=== PATIENT | female | born 1975 | race Caucasian/White ===

== ENCOUNTER 2018-09-15 09:51 | Inpatient (IN) | payer SELFPAY ==
[2018-09-15] MEDS ORDERED: FENTANYL CITR 100 MCG/2 ML ONE ×2 (10:48→12:10)
[2018-09-15] MEDS ORDERED: PROMETHAZINE 25 MG/ML VIAL ONE (10:48)
[2018-09-15] MEDS ORDERED: METOPROLOL TARTRATE 5 MG/5 ML INJ IV ONE (10:48)
[2018-09-15] MEDS ORDERED: NA CHLORIDE 0.9% 1,000 ML ONE ×2 (10:49→13:04)
[2018-09-15 11:03] LABS: Absolute Lymphocytes (CBC) 4.8 K/uL (0.7-4.9); Absolute Monocytes 1.3 K/uL (0.1-1.3); Absolute Neutrophil 10.5 K/uL (1.8-8.0); Basophils % 0.7 % (0-1.3); Eosinophils % 0.6 % (0-4.4); Hematocrit 43.4 % (36.0-45.0); Lymphocytes % 28.6 % (15.3-44.8); MPV 8.7 fL (7.6-11.3); Monocytes % 7.9 % (3.3-12.3); RBC Red Blood Cell Count 5.15 M/uL (3.86-4.86)
[2018-09-15 11:08] LABS: Protime INR 1.13
[2018-09-15] MEDS ORDERED: RSI MEDICATION KIT IV ONE (11:18)
[2018-09-15] MEDS ORDERED: MIDAZOLAM HCL 2 MG/2 ML INJ ONE ×3 (11:19→13:03)
[2018-09-15 11:22] LABS: Barbiturates NEGATIVE (NEGATIVE); Benzodiazepines NEGATIVE (NEGATIVE); Cocaine NEGATIVE (NEGATIVE); METHAMPHETAM NEGATIVE (NEGATIVE); Methadone NEGATIVE (NEGATIVE); Opiates NEGATIVE (NEGATIVE); Phencyclidine NEGATIVE (NEGATIVE); THC Cannibis NEGATIVE (NEGATIVE)
[2018-09-15 11:34] LABS: Albumin 3.5 g/dL (3.4-5.0); Bilirubin Direct 0.1 mg/dL (0-0.2); Bilirubin Total 0.4 mg/dL (0.2-1.0); Potassium 3.4 mmol/L (3.5-5.1); Protein, Total 7.7 g/dL (6.4-8.2); Troponin (Emerg Dept Use Only) 0.21 ng/mL (0.0-0.045)
[2018-09-15] MEDS ORDERED: LIDOCAINE 1% 20 ML MDV ONE ×2 (11:36→11:46)
[2018-09-15] MEDS ORDERED: TENECTEPLASE 50 MG/10 ML VIAL IV ONE (11:37)
[2018-09-15] MEDS ORDERED: ASPIRIN 600 MG/SUPP PR ONE (11:38)
[2018-09-15] MEDS ORDERED: DEXTROSE IV ONE (11:38)
[2018-09-15] MEDS ORDERED: LIDOCAINE IV ONE (11:38)
[2018-09-15 11:46] LABS: Urine Bacteria <20 /HPF (<20); Urine RBC 20-50 /HPF (NONE SEEN)
[2018-09-15] MEDS ORDERED: HEPA 1000U/500MLS 2,000 UNIT/1,000 ML BAG IV ONE (11:46)
[2018-09-15 11:47] LABS: Urine Blood 1+ (NEG); Urine Glucose NEGATIVE (NEG); Urine Protein NEGATIVE (NEG); Urine Specific Gravity 1.005 (1.005-1.030)
[2018-09-15 11:47] LABS: Urine Culture Reflex Order REFLEXED
[2018-09-15] MEDS ORDERED: NA CHLORIDE 0.9% 50 ML ONE (11:47)
[2018-09-15] MEDS ORDERED: ATROPINE SULF 1 MG/10 ML SYR IV ONE (11:47)
--- NOTE | 2018-09-15 11:52 | EKG ---
Test Date: 2018-09-15 Test Time: 10:09:36 Associate Professor Of Economics: DEYANIRA MEASUREMENT RESULTS: Intervals: Rate: 114 NV: 120 QRSD: 98 QT: 360 QTc: 496 [place]: P: 63 NV: 120 QRS: 86 T: 52 INTERPRETIVE STATEMENTS: Sinus rhythm frequent PVC ST elevation, consider early repolarization, pericarditis, or injury Abnormal ECG Compared to ECG 01/06/2012 21:56:27 ST (T wave) deviation now present T-wave abnormality no longer present Possible ischemia no longer present Prolonged QT interval no longer present Electronically Signed On 09-15-18 11:51:59 HL7 INTERFACE DEVELOPER by Dallas Auguste
--- NOTE | 2018-09-15 12:01 | RAD REPORT ---
EXAM DESCRIPTION: RAD - Chest Single View - 09/15/2018 11:56 am CLINICAL HISTORY: CHEST PAIN Chest pain. COMPARISON: No comparisons FINDINGS: Portable technique limits examination quality. ET tube tip is above the mukesh. Enteric tube descends into the upper abdomen. Lungs are grossly jose r. Heart size is within normal limits.
[2018-09-15] MEDS ORDERED: MIDAZOLAM HCL 5 MG/5 ML INJ ONE (12:10)
[2018-09-15] MEDS ORDERED: KETAMINE HCL 500 MG/5 ML VIAL ONE (12:15)
[2018-09-15] MEDS ORDERED: Phenylephrine HCl 10 MG/ML 1 ML VIAL ONE (12:15)
[2018-09-15] MEDS ORDERED: FENTANYL CITR 250 MCG/5 ML ONE (12:16)
--- NOTE | 2018-09-15 12:33 | ER ---
Nurse's Notes [facility] Name: Veda Colon Age: 43 yrs Sex: Female : 1975 Arrival Date: 09/15/2018 Time: 09:54 Bed 19 Private MD: None, None Diagnosis: Ventricular fibrillation-refractory;Acute coronary syndrome resulting in LAD occlusion and myocardial infarction;Status post CPR Presentation: 09/15 10:12 Presenting complaint: Patient states: MARCUS BEEN ON BACTRIM AND AUGMENTIN FOR UTI. HAVE ls4 UPPER ABDOMINAL AND CHEST PAIN THAT GOT WORSE TODAY. I HAD MRI IN [place] THAT SHOWS DUCT BLOCKAGE. THE PAIN GOT SO BAD TODAY I COULDN'T IGNORE. Transition of care: patient was not received from another setting of care. Onset of symptoms was September 15, 2018 at 10:13. Risk Assessment: Do you want to hurt yourself or someone else? Patient reports no desire to harm self or others. Initial Sepsis Screen: Does the patient meet any 2 criteria? No. Patient's initial sepsis screen is negative. Does the patient have a suspected source of infection? Yes:. Care prior to arrival: None. 10:12 Method Of Arrival: Ambulatory ls4 10:12 Acuity: ADONIS 3 ls4 Triage Assessment: 10:20 General: Appears distressed, uncomfortable, Behavior is cooperative, anxious. Pain: ls4 Complains of pain in epigastric area and right upper quadrant Pain currently is 10 out of 10 on a pain scale. Cardiovascular: No deficits noted. Respiratory: No deficits noted. SMOCKER: 10:27 LMP N/A - control method ls4 Historical: - Allergies: 10:20 No Known Allergies; ls4 - Immunization history:: Adult Immunizations unknown. - Social history:: Smoking status: Patient uses tobacco products, smokes one pack cigarettes per day. - Ebola Screening: : Patient negative for fever greater than or equal to 101.5 degrees Fahrenheit, and additional compatible Ebola Virus Disease symptoms Patient denies exposure to infectious person Patient denies travel to an Ebola-affected area in the 21 days before illness onset No symptoms or risks identified at this time. Screenin:21 Abuse screen: Denies threats or abuse. Denies injuries from another. Nutritional ls4 screening: No deficits noted. Tuberculosis screening: No symptoms or risk factors identified. Fall Risk None identified. Assessment: 10:00 General: Appears in no apparent distress. comfortable, obese, Behavior is cooperative, bp appropriate for age, anxious. Pain: Complains of pain in thoracic area and abdomen and epigastric area Pain does not radiate. Pain began 3 hours ago. Neuro: Level of Consciousness is awake, alert, obeys commands, Oriented to person, place, time, situation, Appropriate for age. Cardiovascular: Rhythm is sinus rhythm with unifocal PVCs. Respiratory: Airway is patent Respiratory effort is even, unlabored, Respiratory pattern is regular, symmetrical, Breath sounds are clear bilaterally. GI: Abdomen is non-distended, obese. : No signs and/or symptoms were reported regarding the genitourinary system. EENT: No deficits noted. Derm: No deficits noted. Musculoskeletal: Circulation, motion, and sensation intact. Range of motion: intact in all extremities. 10:59 Reassessment: WITNESSED ARREST BY NURSE AND SUBSTATION OPERATOR CONVERSION. CPR STARTED IMMEDIATELY. SEE CODE bp SHEET FOR DETAILS. 11:21 Reassessment: ROSC. DR VILLAFANA EN ROUTE FOR EMERGENT CATH. bp 12:15 Reassessment: PT [facility] CARDIAC CATH PERSONNEL. bp Vital Signs: 10:21 BP 155 / 102; Pulse 105; Resp 20; Temp 99.1(O); Pulse Ox 100% ; ls4 ED Course: 09:54 Patient arrived in ED. mr 09:54 None, None is Private Physician. mr 10:08 Brian Garrison, RN is Primary Nurse. bp 10:13 Blanca Onofre FNP-C is PHCP. snw 10:13 Jean Le MD is Attending Physician. snw 10:14 Triage completed. ls4 10:21 EKG done, by residential service technician. reviewed by Jean Le MD. at1 10:21 Patient has correct armband on for positive identification. Placed in gown. Bed in low ls4 position. Side rails up X 1. classroom monitor on. Pulse ox on. NIBP on. Warm blanket given. Verbal reassurance given. 10:21 Arm band placed on. bp 10:26 No provider procedures requiring assistance completed. ls4 10:30 Inserted saline lock: 20 gauge in right antecubital area, using aseptic technique. bp Blood collected. 10:36 Radiology exam delayed due to VOMITING. sw 11:03 Inserted saline lock: 20 gauge in left antecubital area, using aseptic technique. bp 11:35 Ferreira cath inserted, using sterile technique, 16 Fr., by ED staff, balloon inflated, to bp gravity drainage, NGT: inserted 16 Fr. via left nare. verified placement of air over stomach, verified return of gastric contents, Placement verified by X-ray. 11:57 XRAY Chest (1 view) In Process Unspecified. EDMS 12:23 Daniel Obando DO is Hospitalizing Provider. snw 12:41 Patient admitted, IV remains in place. O2 via ETT. bp Administered Medications: 10:45 Drug: NS 0.9% 1000 ml Route: IV; Rate: 125 ml/hr; Site: right antecubital; bp 10:45 Drug: fentaNYL (PF) 50 mcg Route: IVP; Site: right antecubital; bp 11:00 Follow up: Response: No adverse reaction bp 10:45 Drug: Phenergan 12.5 mg Route: IVP; Site: right antecubital; bp 11:00 Follow up: Response: No adverse reaction bp 11:04 Drug: Lopressor 5 mg Route: IVP; Site: right antecubital; bp 11:05 Drug: Magnesium Sulfate 2 grams Route: IVPB; Infused Over: 2 hrs; Site: left bp antecubital; 11:08 Drug: Lidocaine 100 mg Route: IVP; Site: left antecubital; bp 11:08 Drug: Versed 5 mg Route: IVP; Site: left antecubital; bp 11:13 Drug: Succinylcholine 100 mg Route: IVP; Site: left antecubital; bp 11:18 Drug: EPINEPHrine 0.1mg/mL 1:10,000 1 mg Route: IVP; Site: left antecubital; bp 11:30 Drug: Aspirin Suppository 300 mg Route: CO; bp 11:42 Drug: Versed 5 mg Route: IVP; Site: left antecubital; bp Outcome: 12:31 Decision to Hospitalize by Provider. snw 12:42 Admitted to [employer] Member Other Ranks accompanied by nurse, via stretcher, with oxygen, on monitor, with bp chart. 12:42 critical 12:42 Instructed on the need for admit. 12:53 Patient left the ED. snw Signatures: Dispatcher [employer] EDNV Blanca Onofre FNP-C BLAST SETTER-Darius Paulino Marian mr Kaminski, Sapphire, systems mgr EKG Tat1 Lorena Stoner Brian, RN RN Bethany Rondon RN RN ls4
--- NOTE | 2018-09-15 12:33 | EDPHYS ---
Physician Documentation [facility] Name: Veda Colon Age: 43 yrs Sex: Female : 1975 Arrival Date: 09/15/2018 Time: 09:54 Bed 19 Private MD: None, None ED Physician Jean Le HPI: 09/15 12:04 This 43 yrs old Female presents to ER via Ambulatory with complaints of Chest snw Pain, Back Pain, Abdominal Pain. 12:04 The patient or guardian reports chest pain that is located primarily in the substernal snw area, epigastric area. Onset: gradually, 1.5 month(s) ago, and became worse 2 day(s) ago. The pain radiates to back. Associated signs and symptoms: Pertinent positives: abdominal pain, lightheadedness, nausea. The chest pain is described as a pressure. Duration: The patient or guardian reports multiple episodes, with no pattern. Severity of pain: At its worst the pain was incapacitating 2 day(s) ago, in the emergency department the pain pain resolved a little yesterday and then returned strongly today. intermittently over the past 1.5 months. The patient has been recently seen by a physician: with similar presenting complaints, worked up for UTI and Abdominal pain/gallbladder disease. 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 - Social history:: Smoking status: Patient uses tobacco products, smokes one pack cigarettes per day. - Ebola Screening: : Patient negative for fever greater than or equal to 101.5 degrees Fahrenheit, and additional compatible Ebola Virus Disease symptoms Patient denies exposure to infectious person Patient denies travel to an Ebola-affected area in the 21 days before illness onset No symptoms or risks identified at this time. ROS: 12:02 Constitutional: Negative for fever, chills, and weight loss, Eyes: Negative for injury, snw pain, redness, and discharge, ENT: Negative for injury, pain, and discharge, Neck: Negative for injury, pain, and swelling. 12:02 Respiratory: Negative for shortness of breath, cough, wheezing, and pleuritic chest pain. 12:02 : Negative for injury, bleeding, discharge, and swelling, MS/Extremity: Negative for injury and deformity, Skin: Negative for injury, rash, and discoloration, Neuro: Negative for headache, weakness, numbness, tingling, and seizure. 12:02 Cardiovascular: Positive for chest pain, of the up from left mid axillary line to epigastrum with radiation through to back, palpitations. 12:02 Abdomen/GI: Positive for abdominal pain, nausea. 12:02 Back: Positive for radiated pain, of the left scapular area, right scapular area and thoracic area. Exam: 11:57 Head/Face: Normocephalic, atraumatic. Eyes: Pupils equal round and reactive to light, snw extra-ocular motions intact. Lids and lashes normal. Conjunctiva and sclera are non-icteric and not injected. Cornea within normal limits. Periorbital areas with no swelling, redness, or edema. ENT: Nares patent. No nasal discharge, no septal abnormalities noted. Tympanic membranes are normal and external auditory canals are clear. Oropharynx with no redness, swelling, or masses, exudates, or evidence of obstruction, uvula midline. Mucous membranes moist. Neck: Trachea midline, no thyromegaly or masses palpated, and no cervical lymphadenopathy. Supple, full range of motion without nuchal rigidity, or vertebral point tenderness. No Meningismus. Chest/axilla: Normal chest wall appearance and motion. Nontender with no deformity. No lesions are appreciated. 11:57 Abdomen/GI: Soft, non-tender, with normal bowel sounds. No distension or tympany. No guarding or rebound. No evidence of tenderness throughout. Back: No spinal tenderness. No costovertebral tenderness. Full range of motion. Skin: Warm, dry with normal turgor. Normal color with no rashes, no lesions, and no evidence of cellulitis. MS/ Extremity: Pulses equal, no cyanosis. Neurovascular intact. Full, normal range of motion. Neuro: Awake and alert, GCS 15, oriented to person, place, time, and situation. Cranial nerves II-XII grossly intact. Motor strength 5/5 in all extremities. Sensory grossly intact. Cerebellar exam normal. Normal gait. 11:57 Constitutional: The patient appears alert, awake, anxious, obese, restless, uncomfortable. 11:57 Cardiovascular: Rate: tachycardic, Rhythm: irregular, multiple PVC's, Pulses: no pulse deficits are appreciated, Heart sounds: S4, increased, Edema: is not appreciated, JVD: is not appreciated. 11:57 Respiratory: the patient does not display signs of respiratory distress, Respirations: normal, Breath sounds: are clear throughout, pt with mild tachypnea and appearance of shortness of breath but pt denies SOB. 11:57 Psych: Behavior/mood is pleasant, cooperative, anxious. Vital Signs: 10:21 BP 155 / 102; Pulse 105; Resp 20; Temp 99.1(O); Pulse Ox 100% ; ls4 MDM: 10:13 Patient medically screened. snw 12:17 ECG:. The patient was given aspirin in the Emergency Department. ED course: multiple snw PVCs. Pt due for Atenolol 25mg po, requested pt hold dose and we will give Lopressor 5mg IVP per protocol. Pt to have CT chest for PE second to EKG changes and tachycardia with SOB. Awaiting labs.. ED course: When pt to have CXR in the room, pt slumped over and became unresponsive. Noted to be in V. fib. Orders for defib and code called. . 12:20 Data reviewed: vital signs, nurses notes, EKG. Counseling: I had a detailed discussion snw with the patient and/or guardian regarding: the historical points, exam findings, and any diagnostic results supporting the discharge/admit diagnosis, the presence of at least one elevated blood pressure reading (>120/80) during this emergency department visit. Physician consultation: Dallas Auguste MD was contacted at 11:37, regarding patient's condition, need for cath lab radiology technician emergently. 12:22 Data interpreted: Pulse oximetry: on room air is 100 %. Interpretation: normal. snw Physician consultation: in the emergency department to see patient at 11:37, no meds ordered.. 09/15 10:17 Order name: Basic Metabolic Panel; Complete Time: 11:43 snw 09/15 10:17 Order name: CBC with Diff; Complete Time: 11:25 snw 09/15 10:17 Order name: LFT's; Complete Time: 11:43 snw 09/15 10:17 Order name: Magnesium; Complete Time: 11:43 snw 09/15 10:17 Order name: NT PRO-BNP; Complete Time: 11:43 snw 09/15 10:17 Order name: PT-INR; Complete Time: 11:25 snw 09/15 10:17 Order name: Troponin (emerg Dept Use Only); Complete Time: 11:43 snw 09/15 10:17 Order name: Lipase; Complete Time: 11:43 snw 09/15 10:17 Order name: Blood Culture Adult (2) snw 09/15 10:17 Order name: DD; Complete Time: 11:25 snw 09/15 10:17 Order name: Urine Drug Screen; Complete Time: 11:25 snw 09/15 10:17 Order name: Urine Culture [facility] 09/15 10:17 Order name: Urine Microscopic Only; Complete Time: 11:53 snw 09/15 11:11 Order name: Urine Dipstick--Ancillary (enter results); Complete Time: 11:53 09/15 10:17 Order name: XRAY Chest (1 view); Complete Time: 12:31 sn 09/15 10:17 Order name: EKG; Complete Time: 10:19 [facility] 09/15 12:37 Order name: EKG Electrocardiogram [facility] 09/15 10:17 Order name: Cardiac monitoring [facility] 09/15 10:17 Order name: EKG - Nurse/Tech [facility] 09/15 10:17 Order name: IV Saline Lock [facility] 09/15 10:17 Order name: Labs collected and sent [facility] 09/15 10:17 Order name: O2 Per Protocol [facility] 09/15 10:17 Order name: O2 Sat Monitoring [facility] 09/15 10:17 Order name: Urine Dipstick-Ancillary (obtain specimen); Complete Time: 11:56 snw EC:17 Rhythm is irregular. QRS [place] is Normal. MA interval is normal. QRS interval is normal. snw QT interval is normal. Clinical impression: NSR w/ Non-specific ST/T Changes. Administered Medications: 10:45 Drug: NS 0.9% 1000 ml Route: IV; Rate: 125 ml/hr; Site: right antecubital; bp 10:45 Drug: fentaNYL (PF) 50 mcg Route: IVP; Site: right antecubital; bp 11:00 Follow up: Response: No adverse reaction bp 10:45 Drug: Phenergan 12.5 mg Route: IVP; Site: right antecubital; bp 11:00 Follow up: Response: No adverse reaction bp 11:04 Drug: Lopressor 5 mg Route: IVP; Site: right antecubital; bp 11:05 Drug: Magnesium Sulfate 2 grams Route: IVPB; Infused Over: 2 hrs; Site: left bp antecubital; 11:08 Drug: Lidocaine 100 mg Route: IVP; Site: left antecubital; bp 11:08 Drug: Versed 5 mg Route: IVP; Site: left antecubital; bp 11:13 Drug: Succinylcholine 100 mg Route: IVP; Site: left antecubital; bp 11:18 Drug: EPINEPHrine 0.1mg/mL 1:10,000 1 mg Route: IVP; Site: left antecubital; bp 11:30 Drug: Aspirin Suppository 300 mg Route: MA; bp 11:42 Drug: Versed 5 mg Route: IVP; Site: left antecubital; bp Disposition: 12:52 Critical Care:. snw 09/16 12:39 Co-signature as Attending Physician, Jean Le MD I agree with the assessment and wa plan of care. Chart complete. Disposition: 09/15/18 12:31 Hospitalization ordered by Daniel Obando for Inpatient Admission. Preliminary diagnosis are Ventricular fibrillation - refractory, Acute coronary syndrome resulting in LAD occlusion and myocardial infarction, Status post CPR. 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 - Status is Inpatient Admission. snw - Condition is Critical. - Problem is an ongoing problem. - Symptoms have worsened. UTI on Admission? No Critical care time excluding procedures: 09/15 12:52 Critical care time: Bedside Care: 30 minutes, Consultation: 10 minutes, Family snw Intervention: 10 minutes. Total time: 50 minutes Signatures: Dispatcher [employer] EDOH Blanca Onofre, CRATE LINER-C CRATE LINER-Csnw Jean Le MD MD wa Peltier, Brian, RN RN Bethany Rondon, RN RN ls4 Corrections: (The following items were deleted from the chart) 12:04 10:31 Chest For PE Angio+CT.RAD.BRZ ordered. EDMS EDMS 12:04 10:31 Abdomen Pelvis W Con+CT.RAD.BRZ ordered. EDOH EDMS 12:53 12:31 Hospitalization Ordered by Daniel Obando DO for Inpatient Admission. Preliminary snw diagnosis is Ventricular fibrillation - refractory; Acute coronary syndrome resulting in LAD occlusion and myocardial infarction; Status post CPR. 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 Status is Inpatient Admission. Condition is Critical. Problem is an ongoing problem. Symptoms have worsened. UTI on Admission? No. snw
[2018-09-15] MEDS ORDERED: PRASUGREL (EFFIENT) 10 MG TAB ONE (12:36)
[2018-09-15] MEDS ORDERED: METOPROLOL TARTRATE 5 MG/5 ML INJ IV SCH (13:00)
[2018-09-15] MEDS ORDERED: ONDANSETRON 4 MG/2 ML VIAL ONE (13:02)
--- NOTE | 2018-09-15 13:31 | P.HP ---
Certification for Inpatient Patient admitted to: Inpatient With expected LOS: >2 Midnights Patient will require the following post-hospital care: None Practitioner: I am a practitioner with admitting privileges, knowledge of patient current condition, hospital course, and medical plan of care. Services: Services provided to patient in accordance with Admission requirements found in Title 42 Section 412.3 of the Code of Federal Regulations Patient History Date of Service: 09/15/18 Primary Care Provider: Kimmie Huang Reason for admission: Chest pain History of Present Illness: 43-year-old female presented emergency room with chest pain. In her workup the patient went into cardiac arrest. The patient was resuscitated. The patient was immediately sent to heart catheterization lab with cardiology. Patient found to have mid LAD lesion. Stent was placed. Patient now stable. Patient will go to the ICU. Patient with history of hypertension, GERD, and tobacco use. Her daughter reports that she had been seen by her PCP recently for GI related issues. She had numerous tests to further evaluate conditions related to her GI and system. This included ultrasound and lab. She believes that the patient has a liver mass. She recently was treated for UTI. She further reports the patient has had palpitations in the past. She has not formally cardiology. Patient smokes heavily. Patient has been taking atenolol and Prilosec. In the ER she was found to have elevated troponin. EKG showed ST elevation indicate ST elevated [place]. Allergies No Known Allergies Allergy (Unverified 01/06/12 23:04) - Past Medical/Surgical History Diabetic: No -: Hypertension -: Tobacco abuse -: GERD -: History of melanoma Past Surgical History: Reviewed- Non-Contributory Psychosocial/ Personal History: Patient is single. She has 2 children. 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 - Family History Mother -: Hypertension, Other (see notes) (Grandmother with history of atrial fibrillation) - Social History Smoking Status: Heavy Tobacco smoker (>10 cigarettes/day) Smoking therapy provided: No Alcohol use: No CD- Drugs: No Caffeine use: Yes Place of Residence: Home Review of Systems is unable to be obtained Physical Examination - Vital Signs Temperature: 99.1 F Blood Pressure: 155/102 Pulse: 105 Respirations: 20 - Physical Exam General: Alert, Other (Patient currently intubated.) HEENT: Atraumatic, Normocephalic Neck: Supple Respiratory: Clear to auscultation bilaterally, Normal air movement Cardiovascular: Normal pulses, Regular rate/rhythm Gastrointestinal: Normal bowel sounds, Soft and benign, Non-distended, No masses , No rebound, No guarding Musculoskeletal: No erythema, No warmth Integumentary: No erythema, No warmth, No cyanosis Neurological: Other (Patient intubated) - Studies Laboratory Data (last 24 hrs) 09/15/18 10:47: PT 13.4 H, INR 1.13 09/15/18 10:47: WBC 16.9 H, Hgb 14.4, Hct 43.4, Plt Count 322 09/15/18 10:41: Sodium 139, Potassium 3.4 L, BUN 9, Creatinine 0.77, Glucose 103 , Magnesium 2.0, Total Bilirubin 0.4, AST 10 L, ALT 14, Alkaline Phosphatase 114 , Lipase 142 Assessment and Plan - Plan Impression: ST elevation [place] status post cardiac arrest and heart catheterization showing mid LAD lesion status post stent Hypertension Tobacco abuse GERD Plan: ST elevation [place] status post cardiac arrest and heart catheterization showing mid LAD lesion status post stent: Case discussed with cardiology. Patient will go to the ICU. Patient currently intubated. Will consult pulmonology for vent management. Anticipate patient will be weaned off the vent quickly. Continue with recommendations by Cardiology. Will monitor closely. Will try to obtain recent lab and radiology from her PCP. Hypertension: Blood pressure slightly low. Will provide medication as needed. Tobacco abuse: Will need to address lifestyle modification education and tobacco cessation GERD: Will provide medication. Discharge Plan: Home Plan to discharge in: Greater than 2 days - Advance Directives Does patient have a Living Will: No Does patient have a Durable POA for Healthcare: No - Code Status/Comfort Care Code Status Assessed: Yes (Patient full code.) Time Spent Managing Pts Care (In Minutes): 55
[2018-09-15] MEDS ORDERED: NA CHLORIDE 0.9% 1,000 ML IV SCH ×2 (14:00→14:05)
[2018-09-15] MEDS ORDERED: NITROGLYCERIN 0.4 MG/TAB SL PRN (14:05)
[2018-09-15] MEDS ORDERED: ALPRAZOLAM 0.25 MG TABLET PO PRN (14:05)
[2018-09-15] MEDS ORDERED: ACETAMINOPHEN 500 MG TAB PO PRN (14:05)
[2018-09-15] MEDS ORDERED: ONDANSETRON 4 MG/2 ML VIAL IV PRN (14:05)
[2018-09-15] MEDS ORDERED: SODIUM CHLORIDE 0.9% 10ML INJ IV PRN (14:05)
[2018-09-15 14:49] LABS: Arterial Blood Carboxyhemoglob 1.2 % (0-1.5); Blood Gas Oxyhemoglobin 95.6 % (94-97); Blood O2 Saturation 97.4 % (92-98.5)
[2018-09-15] MEDS ORDERED: ENOXAPARIN 100 MG/ML SYR SQ SCH (15:00)
[2018-09-15] MEDS ORDERED: METOPROLOL TARTRATE 5 MG/5 ML INJ IV STA (15:59)
[2018-09-15] MEDS ORDERED: MAGNESIUM SULFATE 1 gm IVPB 1 GM/100 ML BAG IV ONE (16:00)
[2018-09-15] MEDS: KCL 20 MEQ/100 mL IVPB 20 MEQ/100 ML BAG IV SCH ×2 (16:21→19:34)
[2018-09-15] MEDS ORDERED: NA CHLORIDE 0.9% 250 ML IV PRN (16:37)
[2018-09-15] MEDS ORDERED: HALOPERIDOL LACT 5 MG/ML INJ IV PRN (16:37)
[2018-09-15] MEDS ORDERED: FENTANYL CITR 100 MCG/2 ML IV PRN (16:37)
[2018-09-15] MEDS ORDERED: PROPOFOL 1,000 MG/100 ML VIAL IV PRN (16:37)
[2018-09-15] MEDS ORDERED: MIDAZOLAM HCL 2 MG/2 ML INJ IV PRN (16:37)
[2018-09-15] MEDS: LORazepam 2 MG/ML VIAL IV PRN ×2 (17:01→23:02)
--- NOTE | 2018-09-15 17:04 | EKG ---
Test Date: 2018-09-15 Test Time: 11:25:33 Metallurgical Inspector: DEYANIRA MEASUREMENT RESULTS: Intervals: Rate: 120 OK: 180 QRSD: 72 QT: 314 QTc: 443 [place]: P: 65 OK: 180 QRS: 80 T: 46 INTERPRETIVE STATEMENTS: Sinus tachycardia Low voltage QRS Septal infarct, age undetermined Anterolateral injury pattern Inferior injury pattern ACUTE [place] Abnormal ECG Compared to ECG 09/15/2018 10:09:36 Low QRS voltage now present Myocardial infarct finding now present ST (T wave) deviation no longer present Electronically Signed On 09-15-18 17:03:54 WOODEN SHADE HARDWARE INSTALLER by Dallas Auguste
[2018-09-15] MEDS ORDERED: LORazepam 2 MG/ML VIAL ONE (17:10)
--- NOTE | 2018-09-15 17:16 | CON ---
A 43-year-old woman. Attending Physician: Dr. Obando. Chief Complaint: Chest pain. History Of Present Illness: Ms. Colon has been having chest pain off and on for several weeks, ca me to the ER shortly after getting there, had a cardiac arrest. She was defibrillated. Is in sinus rhythm and has a large anterior injury pattern. It seems that it started right when she was in the E R just about 10:00 a.m. today. She has no prior history of heart disease. An x-ray has been done, h as not been interpreted. Various lab tests have been done. She has a normal creatinine, normal hemo globin, hematocrit, blood sugar 103. Her rapid troponin level was 0.21, this was just before her car diac arrest. Physical Examination: General: She is intubated, obtunded, moving extremities a little bit combative. Lungs: Revealed crackles. Breath sounds are equal bilaterally. Abdomen: Soft. Extremities: Revealed thready distal pulses. Impression: The patient is having an acute anterior myocardial infarction with a cardiac arrest. Roni hernandez needs emergency cardiac catheterization and stent. RONI/JOSEFAL Voice ID: [id number] Report ID: [id number]
[2018-09-15] MEDS: METOPROLOL TARTRATE 5 MG/5 ML INJ IV SCH (19:53)
[2018-09-15] MEDS: ATORVASTATIN 80 MG TAB PO SCH (20:02)
[2018-09-15] MEDS: PANTOPRAZOLE 40 MG INJ IVP SCH (20:02)
[2018-09-15] MEDS ORDERED: FAMOTIDINE 20 MG/2 ML VIAL IV SCH (21:00)
[2018-09-15] MEDS: MORPHINE 4 MG/ML SYR IV PRN (21:58)
--- NOTE | 2018-09-15 23:16 | OP ---
Surgeon: Dallas Auguste MD Procedure: Emergency left heart catheterization with coronary angiography, LV angiography, percutane ous intervention of the mid LAD that was totally occluded. Placement of a stent in the mid LAD is 3. 0 x 16 Synergy inflated to 11 atmospheres. Procedure Findings: The patient had a totally occluded mid LAD. It was right after the first diagon al. There was no collateral flow. We were able to open it, crossed it with a wire, pre-dilated with a balloon. At the end of the procedure, the angiographic result was excellent, 0% stenosis. The ot her arteries were free of any significant disease. Left ventricular ejection fraction in the 30s wit h a large anteroapical akinetic segment. Procedure In Detail: The patient had a cardiac arrest in the emergency room, was resuscitated, intub ated, brought to the cardiac label maker. I have no idea if she was fasting or not. She had an NG tube and was vomiting. The right femoral artery was anesthetized. She was prepared and draped in usual sterile fashion. Lidocaine was used to anesthetize the skin over the artery. The artery entered wit h an 18-gauge needle, short J-wire. 6-[place] sheath placed. We used a JL4 and a JR4 to angiogram th e coronaries. We then used an XBLAD 3.5 with side holes guide. This we got into the left main and i t allowed us to both cross the lesion with a wire, pre-dilate and place a stent. The stent was a 3.0 x 16 Synergy inflated to 11 atmospheres. Angiographic result excellent. The LV gram was done after the intervention and there was no residual coronary stenosis at all. Complications from the procedu re none. Algebraist: Kylah Cagle. Estimated Blood Loss: 30 cc. RONI/MODL Voice ID: [id number] Report ID: [id number]
[2018-09-16] MEDS: METOPROLOL TARTRATE 5 MG/5 ML INJ IV SCH ×2 (00:38→06:31)
[2018-09-16] MEDS: LORazepam 2 MG/ML VIAL IV PRN (01:13)
[2018-09-16] MEDS: MORPHINE 4 MG/ML SYR IV PRN (03:49)
[2018-09-16 05:46] LABS: Arterial Blood Carboxyhemoglob 0.9 % (0-1.5); Blood Gas Oxyhemoglobin 97.4 % (94-97); Blood O2 Saturation 99.2 % (92-98.5)
[2018-09-16 06:08] LABS: Absolute Monocytes 1.7 K/uL (0.1-1.3); Absolute Neutrophil 14.5 K/uL (1.8-8.0); Basophils % 0.2 % (0-1.3); Hematocrit 38.1 % (36.0-45.0); Lymphocytes % 15.5 % (15.3-44.8); MPV 8.9 fL (7.6-11.3); Monocytes % 8.7 % (3.3-12.3)
--- NOTE | 2018-09-16 06:22 | EKG ---
Test Date: 2018-09-15 Test Time: 17:16:08 Tare Worker: RUTH MEASUREMENT RESULTS: Intervals: Rate: 93 TX: 128 QRSD: 96 QT: 382 QTc: 474 [place]: P: 54 TX: 128 QRS: 93 T: 85 INTERPRETIVE STATEMENTS: Sinus rhythm with premature ventricular complexes Rightward axis Anteroseptal infarct Abnormal ECG Compared to ECG 09/15/2018 11:25:33 Ventricular premature complex(es) now present Sinus tachycardia no longer present Myocardial infarct finding still present Electronically Signed On 09-16-18 06:18:12 MEAT AND SEAFOOD MANAGER by Dallas Auguste
[2018-09-16 06:46] LABS: Albumin 2.9 g/dL (3.4-5.0); Bilirubin Total 0.5 mg/dL (0.2-1.0); CKMB Creatine Kinase MB 278.4 ng/mL (0.3-3.6); Magnesium 2.2 mg/dL (1.8-2.4); Potassium 3.8 mmol/L (3.5-5.1); Protein, Total 6.2 g/dL (6.4-8.2)
[2018-09-16] MEDS ORDERED: LEVALBUTEROL 0.63 MG/3 ML NEB NEB PRN (06:58)
--- NOTE | 2018-09-16 07:14 | ECHO ---
HEIGHT: 5 ft 3 in WEIGHT: 201 lb 4.8 oz DATE OF STUDY: 09/15/[address]: Daniel Obando DO 2-DIMENSIONAL: YES M.MODE: YES DOPPLER: YES COLOR FLOW: YES TDS: YES PORTABLE: DEFINITY: BUBBLE STUDY: DIAGNOSIS: STEMI CARDIAC HISTORY: CATHERIZATION: YES SURGERY: NO PROSTHETIC VALVE: NO PACEMAKER: NO MEASUREMENTS (cm) DIASTOLIC (NORMALS) SYSTOLIC (NORMALS) IVSd 1.2 (0.6-1.2) LA Diam 3.2 (1.9-4.0) LVEF 37% LVIDd 3.9 (3.5-5.7) LVIDs 3.2 (2.0-3.5) %FS 18% LVPWd 1.1 (0.6-1.2) Ao Diam (2.0-3.7) 2 DIMENSIONAL ASSESSMENT: RIGHT ATRIUM: NORMAL LEFT ATRIUM: NORMAL RIGHT VENTRICLE: NORMAL LEFT VENTRICLE: NO THROMBUS TRICUSPID VALVE: NORMAL MITRAL VALVE: NORMAL PULMONIC VALVE: NORMAL AORTIC VALVE: NORMAL PERICARDIAL EFFUSION: NONE AORTIC ROOT: NORMAL LEFT VENTRICULAR WALL MOTION: ANTERIOR APICAL AKINESIS DOPPLER/COLOR FLOW: IMPAIRED LEFT VENTRICULAR RELAXATION. TRACE TRICUSPID REGURGITATION. NORMAL RIGHT VENTRICULAR SYSTOLIC PRESSURE. COMMENTS: DEPRESSED LEFT VENTRICULAR EJECTION FRACTION WITH ANTERIOR APICAL AKINESIS. IMPAIRED LEFT VENTRICULAR RELAXATION. TRACE TRICUSPID REGURGITAITON. TECHNOLOGIST: YANN RICHMOND
[2018-09-16] MEDS: IPRATROPIUM BROM 0.5MG/2.5ML NEB SCH ×3 (08:03→19:37)
[2018-09-16] MEDS: ASPIRIN EC 81 MG TAB PO SCH (08:36)
[2018-09-16] MEDS: CLOPIDOGREL 75 MG TABLET PO SCH (08:36)
[2018-09-16] MEDS: PANTOPRAZOLE 40 MG INJ IVP SCH ×2 (08:37→20:03)
--- NOTE | 2018-09-16 08:40 | RAD REPORT ---
EXAM DESCRIPTION: Alon Single View09/16/2018 6:27 am CLINICAL HISTORY: Shortness of breath COMPARISON: September 15 FINDINGS: The lungs appear clear of acute infiltrate. The heart is normal size. Endotracheal and nasogastric tubes remain good position
[2018-09-16] MEDS ORDERED: PIPER/TAZO/NS 3.375gm 3.375 GM/100 ML BAG IVPB SCH (09:00)
[2018-09-16] MEDS ORDERED: CLOPIDOGREL 75 MG TABLET PO SCH (09:00)
--- NOTE | 2018-09-16 09:09 | RAD REPORT ---
EXAM DESCRIPTION: US - Abdomen Exam Complete - 09/16/2018 8:13 am CLINICAL HISTORY: Abdominal pain/elevated liver function test enzymes COMPARISON: none FINDINGS: The liver has a normal echotexture. A gallstone is not seen. The gallbladder wall is not thickened. The biliary tree is normal caliber. The pancreas appears normal in size and echotexture The right kidney measures 12 centimeters with a normal echotexture. The left kidney measures 11 centimeters with a normal echotexture. The spleen measures with 9 centimeters. The abdominal aorta and inferior vena cava appear unremarkable IMPRESSION: Unremarkable abdominal ultrasound. Patient reports a history of a liver mass. This was not visualized sonographically. CT abdomen is rec ommended
--- NOTE | 2018-09-16 09:40 | EKG ---
Test Date: 2018-09-16 Test Time: 08:24:45 Piano Tuner: DEYANIRA MEASUREMENT RESULTS: Intervals: Rate: 105 MT: 122 QRSD: 90 QT: 348 QTc: 459 [place]: P: 56 MT: 122 QRS: 100 T: 78 INTERPRETIVE STATEMENTS: Sinus tachycardia with occasional premature ventricular complexes Rightward axis Anteroseptal infarct, cited previously Abnormal ECG Compared to ECG 09/15/2018 17:16:08 Sinus rhythm no longer present Myocardial infarct finding still present Electronically Signed On 09-16-18 09:40:20 MORTUARY OPERATIONS MANAGER by Dallas Auguste
[2018-09-16] MEDS: HYDROCODONE/APAP 7.5/325 MG TAB PO PRN ×2 (09:57→16:12)
[2018-09-16] MEDS ORDERED: SUCCINYLCHOLINE 20 MG/ML (10 ML) IV ONE (10:55)
--- NOTE | 2018-09-16 12:06 | P.CNS ---
Date of Consult: 09/16/18 Primary [facility] Provider: [facility] Chief Complaint: Ventilator management History of Present Illness: Patient is 43 years of age admitted with an acute TN a was found to have a complete occlusion of the left coronary artery status post stent placement patient was intubated transferred to the ICU main little agitated and in discomfort due to CPR over this morning she tolerated spontaneous breathing trial hemodynamically stable and was extubated day she is very alert responsive cooperative complaining of some chest pain due to CPR otherwise doing well patient is a heavy smoker has some dyspnea on moderate exertion no prior history of COPD Allergies fentanyl Allergy (Verified 09/15/18 23:25) Anaphylaxis Home Medications: Atenolol [Tenormin*] 25 mg PO BID 09/15/18 Omeprazole Magnesium [Prilosec Otc] 20 mg PO DAILY 09/15/18 - Past Medical/Surgical History Diabetic: No -: Hypertension -: Tobacco abuse 2ppd -: GERD -: History of melanoma, multiple spots removed from shoulder and chest -: liver mass 12mm last week -: liver dz unspecified -: tb treated 95, all other tb test have been normal -: pvc, pac, svt -: hypothroidsm -: deaf left ear -: c section -: left ear sx stapes bone -: tonsillectomy Psychosocial/ Personal History: Patient is single. She has 2 children. 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 - Family History Mother Medical History: Hypertension, Other (see notes) (Grandmother with history of atrial fibrillation) - Social History Smoking Status: Current every day smoker Alcohol use: No CD- Drugs: No Caffeine use: Yes Place of Residence: Home Review of Systems 10-point ROS is otherwise unremarkable Respiratory: Shortness of Breath Cardiovascular: Chest Pain Physical Examination Temp Pulse Resp BP Pulse Ox 98.3 F 93 H 17 110/72 100 09/16/18 04:00 09/16/18 06:31 09/16/18 06:00 09/16/18 06:31 09/16/18 06:00 General: Alert, Oriented x3 HEENT: Atraumatic Neck: Supple Respiratory: Clear to auscultation bilaterally Cardiovascular: No edema, Regular rate/rhythm, Normal S1 S2 Gastrointestinal: Normal bowel sounds, Soft and benign - Problems (1) Respiratory failure Current Visit: Yes Status: Acute Plan: Patient is 43 years of age admitted with acute TN occlusion of for left coronary artery status post stent placement was placed on a ventilator. She is doing much better was extubated this morning she is alert responsive cooperative the pressure is slightly low I suspect that she has underlying COPD heavy smoker console not to smoke no evidence of infection Dc antibiotics Qualifiers: Chronicity: acute (2) COPD (chronic obstructive pulmonary disease) Current Visit: Yes Status: Acute Plan: I strongly suspect that she has underlying COPD patient can be transferred to the floor she will need an outpatient workup with pulmonary function testing I would not she has dyspnea on moderate exertion I recommend trial of long-acting cholinergic agent example Spiriva at discharge to follow up with me for an outpatient pulmonary function testing Qualifiers: Chronic bronchitis type: unspecified
--- NOTE | 2018-09-16 12:19 | P.PN ---
Subjective Date of Service: 09/16/18 Primary Care Provider: [facility] Chief Complaint: Ventilator management Subjective: Improving (Patient extubated this morning.) Physical Examination - Vital Signs Temperature: 98.3 F Blood Pressure: 110/72 Pulse: 93 Respirations: 17 Pulse Ox (%): 100 - Physical Exam General: Alert, In no apparent distress, Oriented x3, Cooperative HEENT: Atraumatic Neck: Supple Respiratory: Clear to auscultation bilaterally, Normal air movement Cardiovascular: Normal pulses, Regular rate/rhythm Gastrointestinal: Normal bowel sounds, Soft and benign, Non-distended, No masses , No rebound, No guarding Musculoskeletal: No erythema, No tenderness, No warmth Integumentary: No erythema, No warmth, No cyanosis Neurological: Normal speech, Normal strength at 5/5 x4 extr, Normal tone, Normal affect - Studies Microbiology Data (last 24 hrs): 09/15/18 10:47 Blood - Blood Anaerobic Blood Culture - Final 09/15/18 10:47 Blood - Blood Anaerobic Blood Culture - Final 09/15/18 10:47 Clean Catch Urine [place] Count - Final >100,000 CFU/ML. 09/15/18 10:47 Clean Catch Urine - Final Medications List Reviewed: Yes Assessment & Plan Discharge Plan: Home Plan to discharge in: Greater than 2 days Physician Review Additional Text: Impression: ST elevation [place] status post cardiac arrest and heart catheterization showing mid LAD lesion status post stent Acute respiratory failure secondary to cardiac arrest likely with underlying COPD Hypertension Tobacco abuse GERD Obesity BMI 35 Plan: ST elevation [place] status post cardiac arrest and heart catheterization showing mid LAD lesion status post stent: Patient doing well post heart catheterization. Case discussed at length with cardiology. Patient extubated at this time. Continue with aspirin, Plavix, beta braeden and statin medication. Will see how she does today. Patient on DVT prophylaxis pre Anticipate transfer to the floor by tomorrow. Acute respiratory failure secondary to cardiac arrest likely with underlying COPD: Patient extubated. COPD medication started. Will wean off oxygen. Case discussed with pulmonology. Will discontinue antibiotic therapy. Hypertension: Patient currently on beta-braeden therapy. Will monitor closely. Cardiology to adjust. Tobacco abuse: Will need to address lifestyle modification education and tobacco cessation GERD: Will continue the medication. Obesity, BMI 35: Will address lifestyle modification education. Time Spent Managing Pts Care (In Minutes): 55
[2018-09-16] MEDS ORDERED: EPINEPHrine 1 MG/10 ML SYR IV ONE (12:31)
[2018-09-16] MEDS ORDERED: LIDOCAINE 100 MG/5 ML SYRINGE IV ONE (12:31)
[2018-09-16] MEDS: TRAMADOL HCL 50 MG TAB PO PRN ×2 (12:39→20:03)
[2018-09-16] MEDS ORDERED: NA CHLORIDE 0.9% 500 ML IV ONE (12:39)
[2018-09-16] MEDS: ARFORMOTEROL TARTRATE 15 MCG/2 ML VIAL.NEB NEB SCH ×2 (15:08→19:37)
[2018-09-16] MEDS: METOPROLOL TAR 25 MG TAB PO SCH (18:00)
[2018-09-16] MEDS: ATORVASTATIN 80 MG TAB PO SCH (20:02)
[2018-09-17] MEDS: IPRATROPIUM BROM 0.5MG/2.5ML NEB SCH ×4 (03:01→19:29)
[2018-09-17] MEDS: HYDROCODONE/APAP 7.5/325 MG TAB PO PRN ×2 (05:21→14:44)
[2018-09-17] MEDS: METOPROLOL TAR 25 MG TAB PO SCH ×2 (05:22→17:10)
[2018-09-17 06:02] LABS: Absolute Lymphocytes (CBC) 3.9 K/uL (0.7-4.9); Absolute Monocytes 1.2 K/uL (0.1-1.3); Absolute Neutrophil 8.6 K/uL (1.8-8.0); Basophils % 0.6 % (0-1.3); Eosinophils % 0.4 % (0-4.4); Hematocrit 35.1 % (36.0-45.0); Lymphocytes % 28.2 % (15.3-44.8); MPV 8.9 fL (7.6-11.3); Monocytes % 8.5 % (3.3-12.3); RBC Red Blood Cell Count 4.13 M/uL (3.86-4.86)
[2018-09-17 06:33] VITALS: BMI 35.7
[2018-09-17 06:53] LABS: Magnesium 1.7 mg/dL (1.8-2.4); Potassium 3.6 mmol/L (3.5-5.1)
[2018-09-17 06:56] LABS: CKMB Creatine Kinase MB 39.2 ng/mL (0.3-3.6); Troponin I 66.6 ng/mL (0.0-0.045)
[2018-09-17] MEDS: ARFORMOTEROL TARTRATE 15 MCG/2 ML VIAL.NEB NEB SCH ×3 (08:00→19:29)
[2018-09-17] MEDS: TRAMADOL HCL 50 MG TAB PO PRN (08:31)
[2018-09-17] MEDS: PANTOPRAZOLE 40 MG INJ IVP SCH (08:31)
[2018-09-17] MEDS: ASPIRIN EC 81 MG TAB PO SCH (08:32)
[2018-09-17] MEDS: CLOPIDOGREL 75 MG TABLET PO SCH (08:33)
--- NOTE | 2018-09-17 08:36 | P.PN ---
Subjective Date of Service: 09/17/18 Primary Care Provider: [facility] Chief Complaint: Chest pain Subjective: Improving (Patient overall improved. Still sore to the right chest wall.) Physical Examination - Vital Signs Temperature: 98.8 F Blood Pressure: 95/55 Pulse: 101 Respirations: 21 Pulse Ox (%): 97 - Physical Exam General: Alert, In no apparent distress, Oriented x3, Cooperative HEENT: Atraumatic Neck: Supple Respiratory: Expiratory wheezes (Mild wheezing but good air movement.), Other ( Soreness to the right chest wall anteriorly) Cardiovascular: Normal pulses, Regular rate/rhythm Gastrointestinal: Soft and benign, Non-distended Musculoskeletal: No warmth, Tenderness (Soreness and mild tenderness to the right chest wall) Neurological: Normal speech, Normal strength at 5/5 x4 extr, Normal tone, Normal affect - Studies Microbiology Data (last 24 hrs): 09/15/18 10:47 Blood - Blood Anaerobic Blood Culture - Final 09/15/18 10:47 Blood - Blood Anaerobic Blood Culture - Final 09/15/18 10:47 Clean Catch Urine [place] Count - Final >100,000 CFU/ML. 09/15/18 10:47 Clean Catch Urine - Final Medications List Reviewed: Yes Assessment & Plan Discharge Plan: Home Plan to discharge in: 48 Hours Physician Review Additional Text: Impression: ST elevation [place] status post cardiac arrest and heart catheterization showing mid LAD lesion status post stent Acute respiratory failure secondary to cardiac arrest likely with underlying COPD Hypertension Tobacco abuse GERD Obesity BMI 35 Plan: ST elevation [place] status post cardiac arrest and heart catheterization showing mid LAD lesion status post stent: Patient doing well post heart catheterization. Continue with aspirin, Plavix, beta braeden and statin medication. Anticipate transfer to the floor if okay with cardiology. Will have physical therapy ambulate. Continue with incentive spirometer. Will check x-ray of the ribs as she complains the right chest wall pain likely from CPR. Will provide medication for pain. Anticipate discharge likely tomorrow. Acute respiratory failure secondary to cardiac arrest likely with underlying COPD: Patient extubated. COPD medication started. Will wean off oxygen. No need for antibiotics at this time. Encourage incentive spirometer. Patient will require COPD medication at discharge. Hypertension: Patient currently on beta-braeden therapy. May need to hold blade of braeden if blood pressure low. Will monitor closely. Cardiology to adjust. Tobacco abuse: Patient plans to quit. Continue with tobacco cessation. GERD: Will continue the medication. Obesity, BMI 35: Will address lifestyle modification education. Right chest wall pain likely from CPR: Will check x-ray of the ribs. Will provide medication for pain. Continue physical therapy. Time Spent Managing Pts Care (In Minutes): 55
[2018-09-17] MEDS ORDERED: MAGNESIUM SULFATE 1 gm IVPB 1 GM/100 ML BAG IV ONE (08:52)
[2018-09-17] MEDS ORDERED: KCL 20 MEQ/100 mL IVPB 20 MEQ/100 ML BAG IV SCH (09:00)
--- NOTE | 2018-09-17 11:12 | RAD REPORT ---
EXAM DESCRIPTION: RAD - Ribs Bilateral W/Chest - 09/17/2018 9:45 am CLINICAL HISTORY: Chest pain FINDINGS: Lungs appear clear of acute infiltrate. Rib fracture is not seen. Heart is mildly enlarged
[2018-09-17] MEDS: ENOXAPARIN 30 MG/0.3 ML SQ SCH (14:44)
[2018-09-17] MEDS: predniSONE 10 MG TAB PO SCH ×2 (15:00→20:42)
[2018-09-17] MEDS: ATORVASTATIN 80 MG TAB PO SCH (20:42)
[2018-09-18] MEDS: IPRATROPIUM BROM 0.5MG/2.5ML NEB SCH ×4 (02:00→19:25)
[2018-09-18] MEDS: PANTOPRAZOLE 40MG TABLET PO SCH (05:35)
[2018-09-18] MEDS: METOPROLOL TAR 25 MG TAB PO SCH (05:35)
[2018-09-18 06:16] LABS: Absolute Lymphocytes (CBC) 2.1 K/uL (0.7-4.9); Absolute Monocytes 0.8 K/uL (0.1-1.3); Absolute Neutrophil 8.5 K/uL (1.8-8.0); Basophils % 0.3 % (0-1.3); Hematocrit 34.9 % (36.0-45.0); Lymphocytes % 18.4 % (15.3-44.8); MPV 9.5 fL (7.6-11.3)
[2018-09-18 07:11] LABS: BUN Blood Urea Nitrogen 10 mg/dL (7-18); Bicarbonate 21 mmol/L (21-32); CKMB Creatine Kinase MB 9.8 ng/mL (0.3-3.6); Glucose Level 114 mg/dL (74-106); Magnesium 2.1 mg/dL (1.8-2.4); Potassium 4.1 mmol/L (3.5-5.1); Sodium Level 141 mmol/L (136-145)
[2018-09-18] MEDS: ARFORMOTEROL TARTRATE 15 MCG/2 ML VIAL.NEB NEB SCH ×2 (07:44→19:25)
[2018-09-18] MEDS: predniSONE 10 MG TAB PO SCH ×2 (08:00→20:48)
[2018-09-18] MEDS: ENOXAPARIN 30 MG/0.3 ML SQ SCH (08:00)
[2018-09-18] MEDS: CLOPIDOGREL 75 MG TABLET PO SCH (08:00)
[2018-09-18] MEDS: ASPIRIN EC 81 MG TAB PO SCH (08:00)
--- NOTE | 2018-09-18 10:24 | RAD REPORT ---
EXAM DESCRIPTION: RAD - Chest Pa And Lat (2 Views) - 09/18/2018 10:03 am CLINICAL HISTORY: Shortness of breath COMPARISON: September 16 TECHNIQUE: PA and lateral views of the chest were obtained. FINDINGS: The lungs are underinflated. Interstitial pattern is similar to comparison. No focal infec tious or aspiration pneumonia. No failure or volume overload. Patient has chronic interstitial lung d isease. Heart size is normal and central vasculature is within normal limits. No pleural effusion or pneumothorax seen. No acute bony finding noted. No aortic abnormality. IMPRESSION: Chronic interstitial lung disease with no acute or progressive process.
--- NOTE | 2018-09-18 14:43 | PN ---
Ms. Colon looks and feels very well. She has pain where she got CPR. Her rib cage hurts. Hurts when she uses her arms to pull herself up in bed that sort of thing. A rib series indicates no fract ures, but I feel sure the ligaments have been way over stretched and that is the cause for pain. We are going to do an echocardiogram tomorrow to see if there is any improvement in her wall motion of t he anterior wall and apex and she needs to have her beta braeden dose increased. She will stay on as pirin and Plavix and atorvastatin and low-dose enoxaparin. Otherwise, she can probably be discharged home tomorrow. DARIUS Voice ID: [id number] Report ID: [id number]
--- NOTE | 2018-09-18 15:21 | P.PN ---
Subjective Date of Service: 09/18/18 Primary Care Provider: [facility] Chief Complaint: Chest pain Subjective: Improving (Still with soreness to the right ribcage region) Physical Examination - Vital Signs Temperature: 98.0 F Blood Pressure: 109/67 Pulse: 96 Respirations: 16 Pulse Ox (%): 97 - Physical Exam General: Alert, In no apparent distress, Oriented x3, Cooperative HEENT: Atraumatic Neck: Supple Respiratory: Clear to auscultation bilaterally, Normal air movement, Other ( Soreness to the right ribcage region) Cardiovascular: Normal pulses, Regular rate/rhythm Gastrointestinal: Normal bowel sounds, Soft and benign, Non-distended, No tenderness, No masses, No rebound, No guarding Musculoskeletal: No erythema, No tenderness, No warmth Integumentary: No tenderness/swelling, No erythema, No warmth, No cyanosis Neurological: Normal speech, Normal strength at 5/5 x4 extr, Normal tone, Normal affect - Studies Medications List Reviewed: Yes Assessment & Plan Discharge Plan: Home Plan to discharge in: 24 Hours Physician Review Additional Text: Impression: ST elevation [place] status post cardiac arrest and heart catheterization showing mid LAD lesion status post stent Acute respiratory failure secondary to cardiac arrest likely with underlying COPD Hypertension Tobacco abuse GERD Obesity BMI 35 Plan: ST elevation [place] status post cardiac arrest and heart catheterization showing mid LAD lesion status post stent: Patient doing well post heart catheterization. Continue with aspirin, Plavix, beta braeden and statin medication. Cardiology desires to have repeat echocardiogram to see if there is improvement in her cardiac function. Continue with physical therapy. Encourage incentive spirometer. Soreness to right ribcage region likely from CPR. Will provide medication as needed for pain. Anticipate discharge tomorrow if okay with cardiology. I will turn the service over to Dr. Muller tomorrow. I will go over the plan of care with her. Acute respiratory failure secondary to cardiac arrest likely with underlying COPD: Patient continues to improve. COPD medication started. Will wean off oxygen. No need for antibiotics at this time. Encourage incentive spirometer. Patient will require COPD medication at discharge. Hypertension: Patient currently on beta-braeden therapy. Will monitor closely. Cardiology to adjust. Tobacco abuse: Patient plans to quit. Continue with tobacco cessation. GERD: Will continue the medication. Obesity, BMI 35: Will address lifestyle modification education. Right chest wall pain likely from CPR: X-rays of her ribs show no fracture. Will provide medication for pain. Continue physical therapy. Time Spent Managing Pts Care (In Minutes): 55
[2018-09-18] MEDS: METOPROLOL TAR 50 MG TAB PO SCH (17:37)
[2018-09-18] MEDS: ATORVASTATIN 80 MG TAB PO SCH (20:48)
[2018-09-19 01:20] VITALS: O2SAT 98
[2018-09-19] MEDS: IPRATROPIUM BROM 0.5MG/2.5ML NEB SCH ×3 (01:20→14:00)
[2018-09-19] MEDS: METOPROLOL TAR 50 MG TAB PO SCH (05:15)
[2018-09-19] MEDS: PANTOPRAZOLE 40MG TABLET PO SCH (05:15)
[2018-09-19 06:05] LABS: Absolute Lymphocytes (CBC) 3.7 K/uL (0.7-4.9); Absolute Monocytes 1.2 K/uL (0.1-1.3); Basophils % 0.9 % (0-1.3); Eosinophils % 0.3 % (0-4.4); Hematocrit 33.7 % (36.0-45.0); Lymphocytes % 30.7 % (15.3-44.8); MPV 9.3 fL (7.6-11.3); Monocytes % 9.9 % (3.3-12.3); RBC Red Blood Cell Count 3.97 M/uL (3.86-4.86)
[2018-09-19 06:21] LABS: Magnesium 1.8 mg/dL (1.8-2.4); Potassium 3.9 mmol/L (3.5-5.1)
[2018-09-19] MEDS ORDERED: MAGNESIUM SULFATE 1 gm IVPB 1 GM/100 ML BAG IV ONE (06:23)
[2018-09-19] MEDS ORDERED: POTASSIUM CL SA 10 MEQ TAB PO ONE (06:24)
[2018-09-19] MEDS ORDERED: NA CHLORIDE 0.9% 250 ML ONE (06:53)
[2018-09-19] MEDS: ARFORMOTEROL TARTRATE 15 MCG/2 ML VIAL.NEB NEB SCH (07:49)
[2018-09-19] MEDS: ENOXAPARIN 30 MG/0.3 ML SQ SCH (09:44)
[2018-09-19] MEDS: CLOPIDOGREL 75 MG TABLET PO SCH (09:44)
[2018-09-19] MEDS: ASPIRIN EC 81 MG TAB PO SCH (09:44)
[2018-09-19] MEDS: predniSONE 10 MG TAB PO SCH (09:44)
--- NOTE | 2018-09-19 11:16 | ECHO ---
HEIGHT: 5 ft 3 in WEIGHT: 202 lb 0 oz DATE OF STUDY: 09/19/[address]: Dallas Auguste MD 2-DIMENSIONAL: YES M.MODE: YES DOPPLER: YES COLOR FLOW: YES TDS: YES PORTABLE: NO DEFINITY: NO BUBBLE STUDY: NO DIAGNOSIS: MYOCARDIAL INFARCTION/ ASSESS ANTERIOR WALL MOTION CARDIAC HISTORY: CATHERIZATION: YES SURGERY: NO PROSTHETIC VALVE: NO PACEMAKER: NO MEASUREMENTS (cm) DIASTOLIC (NORMALS) SYSTOLIC (NORMALS) IVSd 0.9 (0.6-1.2) LA Diam 3.5 (1.9-4.0) LVEF 42% LVIDd 5.2 (3.5-5.7) LVIDs 4.2 (2.0-3.5) %FS 20% LVPWd 0.9 (0.6-1.2) Ao Diam 2.2 (2.0-3.7) 2 DIMENSIONAL ASSESSMENT: RIGHT ATRIUM: NORMAL LEFT ATRIUM: NORMAL RIGHT VENTRICLE: NORMAL LEFT VENTRICLE: NORMAL TRICUSPID VALVE: NORMAL MITRAL VALVE: NORMAL PULMONIC VALVE: NORMAL AORTIC VALVE: NORMAL PERICARDIAL EFFUSION: NONE AORTIC ROOT: NORMAL LEFT VENTRICULAR WALL MOTION: ANTEROLATERAL AND APICAL HYPOKINESIS. DOPPLER/COLOR FLOW: MILD MITRALR REGURGITATION. COMMENTS: DEPRESSED LEFT VENTRICULAR EJECTION FRACTION WITH WALL MOTION ABNORMALITY, IMPROVED SINCE 09/15/18. MILD MITRAL REGURGITATION. TECHNOLOGIST: LENNOX HERNANDEZ
[2018-09-19 12:30] VITALS: BP 118/76; TEMP 98
--- NOTE | 2018-09-19 15:15 | P.DS ---
Admission Date: 09/15/18 Discharge Date: 09/19/18 Primary Care Provider: [facility] Disposition: ROUTINE DISCHARGE Discharge Condition: GOOD Reason for Admission: Chest pain Consultations: Cardiology Pulmonology Procedures: 09/15/2018: Cardiac catheterization, with stent placement in LAD Brief History of Present Illness: 43-year-old female presented emergency room with chest pain. In her workup the patient went into cardiac arrest. The patient was resuscitated. The patient was immediately sent to heart catheterization lab with cardiology. Patient found to have mid LAD lesion. Stent was placed. Patient now stable. She was admitted to the ICU. Patient with history of hypertension, GERD, and tobacco use. Her daughter reports that she had been seen by her PCP recently for GI related issues. She had numerous tests to further evaluate conditions related to her GI and system. This included ultrasound and lab. She believes that the patient has a liver mass. She recently was treated for UTI. She further reports the patient has had palpitations in the past. She has not formally cardiology. Patient smokes heavily. Patient has been taking atenolol and Prilosec. In the ER she was found to have elevated troponin. EKG showed ST elevation indicated ST elevated IA. Hospital Course: Patient was taken to the catheterization lab from the ER post cardiac arrest. The stent was placed in the LAD, patient was transferred to the ICU, where she was intubated for acute respiratory failure secondary to cardiac arrest. Cardiology was consulted. Pulmonology was consulted for vent management. Overnight, patient was extubated and slowly weaned off of oxygen. She was continued on aspirin, Plavix, beta-braeden and statin. She did well post heart catheterization, she was then transferred to the floor. Patient stay was complicated by rib pain, x-ray negative for any acute fractures. This was likely secondary to CPR. Repeat echocardiogram was done which showed mild improvement. She was cleared for discharge by cardiology. She otherwise remained stable throughout the stay. It seems that patient may have underlying COPD as she is a current smoker. She was started on COPD medications, she will need outpatient follow up with pulmonology. Pulmonology information provided to patient on discharge paperwork. Prior to discharge, patient was alert oriented x3, in no acute distress and hemodynamically stable. She was tolerating a diet, ambulating without any concerns. She was educated on lifestyle modifications including smoking cessation, exercise and diet control. She was encouraged to follow up with her primary care physician in 1 week. She was also counseled on compliance with the medications. Prescriptions were provided as noted in medication reconciliation. Vital Signs/Physical Exam: Temp Pulse Resp BP Pulse Ox 98.0 F 99 H 15 118/76 97 09/19/18 12:00 09/19/18 12:00 09/19/18 12:00 09/19/18 12:00 09/19/18 12:00 General: Alert, In no apparent distress, Oriented x3 HEENT: Atraumatic, PERRLA, EOMI Neck: Supple, JVD not distended Respiratory: Clear to auscultation bilaterally, Normal air movement Cardiovascular: Regular rate/rhythm, Normal S1 S2 Gastrointestinal: Normal bowel sounds, No tenderness Musculoskeletal: No tenderness Integumentary: No rashes Neurological: Normal speech, Normal tone, Normal affect Lymphatics: No axilla or inguinal lymphadenopathy Laboratory Data at Discharge: WBC 12.0 K/uL (4.3-10.9) H 09/19/18 05:43 Hgb 11.0 g/dL (12.0-15.0) L 09/19/18 05:43 Hct 33.7 % (36.0-45.0) L 09/19/18 05:43 Plt Count 238 K/uL (152-406) 09/19/18 05:43 PT 13.4 SECONDS (9.5-12.5) H 09/15/18 10:47 INR 1.13 09/15/18 10:47 Sodium 143 mmol/L (136-145) 09/19/18 05:43 Potassium 3.9 mmol/L (3.5-5.1) 09/19/18 05:43 BUN 12 mg/dL (7-18) 09/19/18 05:43 Creatinine 0.73 mg/dL (0.55-1.3) 09/19/18 05:43 Glucose 103 mg/dL (74-106) 09/19/18 05:43 Phosphorus Cancelled 09/16/18 05:00 Magnesium 1.8 mg/dL (1.8-2.4) 09/19/18 05:43 Total Bilirubin 0.5 mg/dL (0.2-1.0) 09/16/18 04:55 AST 470 U/L (15-37) H* D 09/16/18 04:55 ALT 283 U/L (12-78) H D 09/16/18 04:55 Alkaline Phosphatase 98 U/L (45-117) 09/16/18 04:55 Troponin I 24.40 ng/mL (0.0-0.045) H* 09/18/18 05:09 Triglycerides 120 mg/dL (<150) 09/16/18 04:55 Cholesterol 147 mg/dL (<200) 09/16/18 04:55 HDL Cholesterol 30 mg/dL (40-60) L 09/16/18 04:55 Cholesterol/HDL Ratio 4.90 09/16/18 04:55 Lipase 142 U/L (73-393) 09/15/18 10:41 Home Medications: Omeprazole Magnesium [Prilosec Otc] 20 mg PO DAILY 09/15/18 Atorvastatin Calcium [Lipitor] 80 mg PO BEDTIME #30 tab 09/19/18 Clopidogrel Bisulfate [Plavix*] 75 mg PO DAILY #30 tablet 09/19/18 Metoprolol Tartrate [Lopressor*] 50 mg PO BID 6AM 6PM #60 tab 09/19/18 Nitroglycerin [Nitrostat*] 0.4 mg SL UD PRN #15 tab 09/19/18 Tiotropium [place] [Spiriva] 1 spray IH DAILY #1 cap.w.dev 09/19/18 New Medications: Atorvastatin Calcium [Lipitor] 80 mg PO BEDTIME #30 tab Clopidogrel Bisulfate [Plavix*] 75 mg PO DAILY #30 tablet Metoprolol Tartrate [Lopressor*] 50 mg PO BID 6AM 6PM #60 tab Nitroglycerin [Nitrostat*] 0.4 mg SL UD PRN #15 tab PRN Reason: Chest Pain Tiotropium [place] [Spiriva] 1 spray IH DAILY #1 cap.w.dev Patient Discharge Instructions: Please follow up with your primary care physician in 1 week. Please follow up with cardiology in 1-2 weeks. Information provided to you. Please follow up with pulmonology in 2 weeks. Trial of spiriva for possible COPD. i recommend you follow up with pulmonology for further evaluation with pulmonary funtion tests. Return to the Emergency room for worsening symptoms. Diet: AHA Activity: Ad erica Followup: Carlos Ellington MD [ACTIVE - CAN ADMIT] - Dallas Auguste MD [ACTIVE - CAN ADMIT] - Time spent managing pt's care (in minutes): 55
--- NOTE | 2018-09-19 17:27 | EKG ---
Test Date: 2018-09-19 Test Time: 12:43:42 Production Operations Engineer: DEYANIRA MEASUREMENT RESULTS: Intervals: Rate: 93 MI: 130 QRSD: 94 QT: 350 QTc: 435 [place]: P: 51 MI: 130 QRS: 99 T: 57 INTERPRETIVE STATEMENTS: Sinus rhythm with occasional premature ventricular complexes Rightward axis Anteroseptal infarct, cited previously Abnormal ECG Compared to ECG 09/16/2018 08:24:45 Sinus tachycardia no longer present Myocardial infarct finding still present Electronically Signed On 09-19-18 17:26:26 RETICLE PRINTER by Dallas Auguste
== END 2018-09-19 16:03 | disposition home or self-care (01) | DRG 246 ==
LOC: ER 09:51 → ERHOLD 12:42 → 3RD-ICU 14:02 → 2ND 09-17 13:45
PROVIDERS: ADMIT Family Medicine; ATTEND Family Medicine
PROC: 027034Z Dilation of Coronary Artery, One Artery with Drug-eluting Intraluminal Device, Percutaneous Approach (ICD-10-PCS; principal; 2018-09-15)
PROC: 4A023N7 Measurement of Cardiac Sampling and Pressure, Left Heart, Percutaneous Approach (ICD-10-PCS; 2018-09-15)
PROC: B211YZZ Fluoroscopy of Multiple Coronary Arteries using Other Contrast (ICD-10-PCS; 2018-09-15)
PROC: B215YZZ Fluoroscopy of Left Heart using Other Contrast (ICD-10-PCS; 2018-09-15)
PROC: 5A1935Z Respiratory Ventilation, Less than 24 Consecutive Hours (ICD-10-PCS; 2018-09-15)
PROC: 0BH17EZ Insertion of Endotracheal Airway into Trachea, Via Natural or Artificial Opening (ICD-10-PCS; 2018-09-15)
PROC: 5A12012 Performance of Cardiac Output, Single, Manual (ICD-10-PCS; 2018-09-15)
DX: I21.09 ST elevation (STEMI) myocardial infarction involving other coronary artery of anterior wall (principal); I46.2 Cardiac arrest due to underlying cardiac condition; J96.00 Acute respiratory failure, unspecified whether with hypoxia or hypercapnia; K21.9 Gastro-esophageal reflux disease without esophagitis; F17.210 Nicotine dependence, cigarettes, uncomplicated; J44.9 Chronic obstructive pulmonary disease, unspecified; I25.10 Atherosclerotic heart disease of native coronary artery without angina pectoris; I25.84 Coronary atherosclerosis due to calcified coronary lesion; I10 Essential (primary) hypertension; Z85.820 Personal history of malignant melanoma of skin; E03.9 Hypothyroidism, unspecified; H91.92 Unspecified hearing loss, left ear; E66.9 Obesity, unspecified; Z68.35 Body mass index [BMI] 35.0-35.9, adult
CPT/HCPCS: 36415; 71045; 71046; 71111; 76700; 80048; 80053; 80061; 80076; 80307; 81003; 81015; 82553; 82805; 83690; 83735; 83880; 84100; 84145; 84484; 85025; 85347; 85379; 85610; 87040; 87086; 87088; 92928; 93005; 93306; 93458; 94002; 94003; 94640; 96374; 96375; 97116; 97162; 99291; C1725; C1877; C1893; C9113; J0171; J0330; J0583; J1650; J2001; J2250; J2370; J2405; J2543; J2550; J3010; J3101; J3475; J7030; J7512; J7605

== ENCOUNTER 2020-07-20 09:23 | Inpatient (IN) | payer BC, OTHER, SELFPAY ==
--- OUTSIDE RECORDS SUMMARY | 2020-07-20 09:25 | XMS REPORT | Continuity of Care Document ---
:1975 Author Organization [facility] t Address [address] [place] [address] Dr. Seguar [address] [place] [id number] Care Team Providers Name Role Phone Unavailable Unavailable Unavailable Problems This patient has no known problems. Allergies, Adverse Reactions, Alerts This patient has no known allergies or adverse reactions. Medications This patient has no known medications. Procedures This patient has no known procedures. Results This patient has no known results.
[2020-07-20 10:41] LABS: Absolute Lymphocytes (CBC) 3.7 K/uL (0.7-4.9); Basophils % 1.3 % (0-1.3); Hematocrit 41.1 % (36.0-45.0); Lymphocytes % 36.5 % (15.3-44.8); RBC Red Blood Cell Count 5.05 M/uL (3.86-4.86)
[2020-07-20 10:42] LABS: Protime INR 1.03
[2020-07-20 10:45] LABS: Urine Blood TRACE (NEG); Urine Glucose NEGATIVE (NEG); Urine Protein NEGATIVE (NEG); Urine Specific Gravity <1.005 (1.005-1.030); Urine pH 6.5 (5.0-7.0)
[2020-07-20 10:55] LABS: Albumin 3.8 g/dL (3.4-5.0); Bilirubin Direct 0.2 mg/dL (0-0.2); Bilirubin Total 0.9 mg/dL (0.2-1.0); Potassium 3.3 mmol/L (3.5-5.1); Protein, Total 8.3 g/dL (6.4-8.2)
[2020-07-20 10:58] LABS: Magnesium 2.1 mg/dL (1.8-2.4); NT PRO-BNP 351 pg/mL (<125); Troponin (Emerg Dept Use Only) < 0.02 ng/mL (0.0-0.045)
--- NOTE | 2020-07-20 11:29 | EDPHYS ---
Physician Documentation [facility] Name: Veda Colon Age: 45 yrs Sex: Female : 1975 Arrival Date: 07/20/2020 Time: 09:24 Bed 14 Private MD: ED Physician Nigel Napier HPI: 07/20 11:20 This 45 yrs old Female presents to ER via Ambulatory with complaints of left vivian lateral chest wall pain to back, hx of mi. 11:20 The patient or guardian reports chest pain that is located primarily in the anterior vivian chest wall, left. Onset: 1 week(s) ago. The pain radiates to left back. Associated signs and symptoms: The patient has no apparent associated signs or symptoms. The chest pain is described as aching. Duration: The patient or guardian reports multiple episodes, that are intermittent. Modifying factors: The symptoms are alleviated by nothing. the symptoms are aggravated by nothing. Severity of pain: At its worst the pain was mild in the emergency department the pain is unchanged. The patient has experienced similar episodes in the past, several times. 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 - Social history:: Smoking status: Patient denies any tobacco usage or history of. - Family history:: not pertinent. ROS: 11:20 Constitutional: Negative for fever, chills, and weight loss, Eyes: Negative for injury, vivian pain, redness, and discharge, ENT: Negative for injury, pain, and discharge, Neck: Negative for injury, pain, and swelling, Abdomen/GI: Negative for abdominal pain, nausea, vomiting, diarrhea, and constipation, Back: Negative for injury and pain, : Negative for injury, bleeding, discharge, and swelling, MS/Extremity: Negative for injury and deformity, Skin: Negative for injury, rash, and discoloration, Neuro: Negative for headache, weakness, numbness, tingling, and seizure, Psych: Negative for depression, anxiety, suicide ideation, homicidal ideation, and hallucinations, Allergy/Immunology: Negative for hives, rash, and allergies, Endocrine: Negative for neck swelling, polydipsia, polyuria, polyphagia, and marked weight changes, Hematologic/Lymphatic: Negative for swollen nodes, abnormal bleeding, and unusual bruising. 11:20 Cardiovascular: Positive for chest pain, of the left lateral posterior chest and left breast. Exam: 11:20 Constitutional: This is a well developed, well nourished patient who is awake, alert, vivian and in no acute distress. Head/Face: Normocephalic, atraumatic. Eyes: Pupils equal round and reactive to light, extra-ocular motions intact. Lids and lashes normal. Conjunctiva and sclera are non-icteric and not injected. Cornea within normal limits. Periorbital areas with no swelling, redness, or edema. ENT: Nares patent. No nasal discharge, no septal abnormalities noted. Tympanic membranes are normal and external auditory canals are clear. Oropharynx with no redness, swelling, or masses, exudates, or evidence of obstruction, uvula midline. Mucous membranes moist. Neck: Trachea midline, no thyromegaly or masses palpated, and no cervical lymphadenopathy. Supple, full range of motion without nuchal rigidity, or vertebral point tenderness. No Meningismus. Chest/axilla: Normal chest wall appearance and motion. Nontender with no deformity. No lesions are appreciated. Cardiovascular: Regular rate and rhythm with a normal S1 and S2. No gallops, murmurs, or rubs. Normal PMI, no JVD. No pulse deficits. Respiratory: Lungs have equal breath sounds bilaterally, clear to auscultation and percussion. No rales, rhonchi or wheezes noted. No increased work of breathing, no retractions or nasal flaring. Abdomen/GI: Soft, non-tender, with normal bowel sounds. No distension or tympany. No guarding or rebound. No evidence of tenderness throughout. Back: No spinal tenderness. No costovertebral tenderness. Full range of motion. Skin: Warm, dry with normal turgor. Normal color with no rashes, no lesions, and no evidence of cellulitis. MS/ Extremity: Pulses equal, no cyanosis. Neurovascular intact. Full, normal range of motion. Neuro: Awake and alert, GCS 15, oriented to person, place, time, and situation. Cranial nerves II-XII grossly intact. Motor strength 5/5 in all extremities. Sensory grossly intact. Cerebellar exam normal. Normal gait. Psych: Awake, alert, with orientation to person, place and time. Behavior, mood, and affect are within normal limits. 11:20 Musculoskeletal/extremity: ROM: no acute changes, intact in all extremities, Circulation is intact in all extremities. Pulses: Sensation intact. Compartment Syndrome exam of affected extremity: is normal. DVT Exam: No signs of deep vein thrombosis. no pain, no swelling, no tenderness, negative Homans' sign noted on exam, no appreciated bluish discoloration, no erythema, no increased warmth. 11:20 Skin: Appearance: Color: normal in color, Temperature: normal temperature, Moisture: normal moisture, petechiae, not noted, ecchymosis, not noted, flushing, not noted. 11:25 ECG was reviewed by the Attending Physician. [facility] Vital Signs: 09:49 BP 142 / 79; Pulse 81; Resp 18 S; Temp 98.1(O); Pulse Ox 100% on R/A; aa5 10:47 BP 112 / 73; Pulse 68; Resp 17; Pulse Ox 100% ; jl7 11:39 Weight 97.52 kg; jl7 13:00 BP 110 / 62; Pulse 89; Resp 18; Pulse Ox 99% on R/A; zb MDM: 09:52 Patient medically screened. [facility] 11:23 Differential diagnosis: abnormal EKG, acute myocardial infarction, acute pericarditis, vivian anxiety, chest wall pain, esophagitis, herpes zoster, pneumonia, pulmonary embolus, stable angina, thoracic aortic disection, unstable angina. HEART Score: History: Highly Suspicious (2), ECG: Normal (0), Age: < or = 45 years (0), Risk Factors: > or = 3 Risk factors for atherosclerotic disease (2), [Hypercholesterolemia] [Hypertension] [+ Family HX] Troponin: < or = 1 x Normal Limit (0), Total Score = 4. The patient was given aspirin in the Emergency Department. The patient's deep vein thrombosis risk score was calculated as follows: Total Score: 0. This patient was found to be at low risk for a deep vein thrombosis by using the Well's assessment criteria. The patient's pulmonary embolism risk score was calculated as follows: Total Score: 0-2 points. This patient was found to be at low risk for a pulmonary embolism by using the Well's assessment criteria. BARBARA Risk Score: 1 - Three or more CAD risk factors, 1- Known CAD, 1 - ASA use in past 7 days, 1 - Recent [<24hrs] Severe Angina, TOTAL SCORE = 4. Data reviewed: vital signs, nurses notes, lab test result(s), EKG, radiologic studies, CT scan. Data interpreted: teletypesetter monitor: rate is 68 beats/min, rhythm is normal sinus rhythm, Pulse oximetry: on room air is 100 %. Test interpretation: by ED physician or midlevel provider: ECG, plain radiologic studies. 07/20 09:54 Order name: Basic Metabolic Panel; Complete Time: 11:06 [facility] 07/20 09:54 Order name: CBC with Diff; Complete Time: 11: [facility] 07/20 09:54 Order name: Hepatic Function; Complete Time: 11: [facility] 07/20 09:54 Order name: Lipase; Complete Time: 11: vivian 07/20 09:57 Order name: Magnesium; Complete Time: 11: [facility] 07/20 09:57 Order name: NT PRO-BNP; Complete Time: 11: [facility] 07/20 09:57 Order name: PT-INR; Complete Time: 11: [facility] 07/20 09:57 Order name: Troponin (emerg Dept Use Only); Complete Time: 11:06 [facility] 07/20 10:37 Order name: Urine Dipstick--Ancillary (enter results); Complete Time: 11:06 em1 07/20 11:17 Order name: D-Dimer; Complete Time: 12:38 [facility] 07/20 11:18 Order name: Urine Culture [facility] 07/20 11:39 Order name: Blood Culture Adult (2) [facility] 07/20 14:18 Order name: SARS-COV-2 RT PCR [facility] 07/20 09:54 Order name: IV Saline Lock; Complete Time: 10:38 [facility] 07/20 09:54 Order name: Labs collected and sent; Complete Time: 10:38 [facility] 07/20 09:54 Order name: Urine Dipstick-Ancillary (obtain specimen); Complete Time: 10:35 [facility] 07/20 09:57 Order name: XRAY Chest (1 view); Complete Time: 12:38 [facility] 07/20 09:57 Order name: EKG; Complete Time: 09:58 [facility] 07/20 09:57 Order name: Cardiac monitoring; Complete Time: 10:38 [facility] 07/20 09:57 Order name: EKG - Nurse/Tech; Complete Time: 10:38 [facility] 07/20 09:57 Order name: O2 Per Protocol; Complete Time: 10:38 [facility] 07/20 09:57 Order name: O2 Sat Monitoring; Complete Time: 10:38 [facility] 07/20 11:26 Order name: CT Chest Wo Con; Complete Time: 12:38 [facility] 07/20 13:08 Order name: CONS Physician Consult EDMS EC:25 Rate is 71 beats/min. Rhythm is regular. QRS [place] is Normal. NE interval is normal. QRS viivan interval is normal. QT interval is normal. No Q waves. T waves are Normal. No ST changes noted. Clinical impression: NSR w/ Non-specific ST/T Changes and No evidence of ischemia. Interpreted by me. Reviewed by me. Administered Medications: 12:30 Drug: Lovenox 1 mg/kg Route: Sub-Q; Site: right lower abdomen; zb 13:00 Follow up: Response: No adverse reaction zb 12:31 Drug: Rocephin 1 grams Route: IV; Rate: per protocol; Site: right hand; zb 12:32 Drug: NS 0.9% 1000 ml Route: IV; Rate: 125 ml/hr; Site: right hand; zb 13:30 Drug: Potassium Effervescent Tablet 25 mEq Route: PO; zb 14:00 Follow up: Response: No adverse reaction zb Disposition: 07/20/20 11:28 Hospitalization ordered by Judd Aparicio for Observation. Preliminary diagnosis are Chest pain, unspecified - hx cad, mi, hyperlipidemia, Hypokalemia. - Bed requested for Telemetry/MedSurg (observation). - Status is Observation. zb - Condition is Stable. - Problem is new. - Symptoms have improved. Signatures: Dispatcher [employer] [facility] Nigel Napier MD MD cha Calderon, Audri, RN RN aa5 Pooja Villa, RN RN jl7 Andres Fregoso, RN RN ja1 Anna Marie Dumont RN RN zb Corrections: (The following items were deleted from the chart) 10:37 09:57 Urine Test ordered. vivian em1 11:30 11:28 Hospitalization Ordered by Judd Aparicio MD for Observation. Preliminary vivian diagnosis is Chest pain, unspecified. Bed requested for Telemetry/MedSurg (observation). Status is Observation. Condition is Stable. Problem is new. Symptoms have improved. [facility] 12:20 11:18 CORONAVIRUS+MR.LAB.BRZ ordered. [facility] EDMS 12:37 09:58 Abdomen Pelvis W Con+CT.RAD.BRZ ordered. [facility] 12:39 11:30 07/20/2020 11:28 Hospitalization Ordered by Judd Aparicio MD for Observation. vivian Preliminary diagnosis is Chest pain, unspecified - hx cad, mi, hyperlipidemia. Bed requested for Telemetry/MedSurg (observation). Status is Observation. Condition is Stable. Problem is new. Symptoms have improved. vivian 13:40 12:39 07/20/2020 11:28 Hospitalization Ordered by Judd Aparicio MD for Observation. ja1 Preliminary diagnosis is Chest pain, unspecified - hx cad, mi, hyperlipidemia; Hypokalemia. Bed requested for Telemetry/MedSurg (observation). Status is Observation. Condition is Stable. Problem is new. Symptoms have improved. vivian 14:53 13:40 07/20/2020 11:28 Hospitalization Ordered by Judd Aparicio MD for Observation. zb Preliminary diagnosis is Chest pain, unspecified - hx cad, mi, hyperlipidemia; Hypokalemia. Bed requested for Telemetry/MedSurg (observation). Status is Observation. Condition is Stable. Problem is new. Symptoms have improved. ja1
--- NOTE | 2020-07-20 11:29 | ER ---
Nurse's Notes [facility] Name: Veda Colon Age: 45 yrs Sex: Female : 1975 Arrival Date: 07/20/2020 Time: 09:24 Bed 14 Private MD: Diagnosis: Chest pain, unspecified-hx cad, mi, hyperlipidemia;Hypokalemia Presentation: 07/20 09:49 Chief complaint: Patient states: LUQ pain that began 1 week ago. Pt reports she was aa5 positive for COVID-19 May 10. Pt denies nausea/vomiting/diarrhea, denies SOB, denies cough. 09:49 Onset of symptoms was July 2020. aa5 09:49 Acuity: ADONIS 3 aa5 09:49 Coronavirus screen: Client denies travel out of the [place] in the last 14 days. At this aa5 time, the client does not indicate any symptoms associated with coronavirus-19. Ebola Screen: Patient negative for fever greater than or equal to 101.5 degrees Fahrenheit, and additional compatible Ebola Virus Disease symptoms. Initial Sepsis Screen: Does the patient meet any 2 criteria? No. Patient's initial sepsis screen is negative. Does the patient have a suspected source of infection? No. Patient's initial sepsis screen is negative. 09:49 Method Of Arrival: Ambulatory aa5 09:49 Risk Assessment: Do you want to hurt yourself or someone else? Patient reports no aa5 desire to harm self or others. 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 - Social history:: Smoking status: Patient denies any tobacco usage or history of. - Family history:: not pertinent. Screenin:00 Abuse screen: Denies threats or abuse. Denies injuries from another. Nutritional jl7 screening: No deficits noted. Tuberculosis screening: No symptoms or risk factors identified. Fall Risk IV access (20 points). Total Cisneros Fall Scale indicates No Risk (0-24 pts). Assessment: 10:00 General: Appears in no apparent distress. uncomfortable, Behavior is cooperative, jl7 appropriate for age, anxious. Pain: Complains of pain in left lateral anterior chest. Neuro: Level of Consciousness is awake, alert, obeys commands, Oriented to person, place, time, situation. Cardiovascular: Patient's skin is warm and dry. Respiratory: Airway is patent Respiratory effort is even, unlabored, Respiratory pattern is regular, symmetrical. GI: Abdomen is non-distended. : Denies burning with urination. Derm: Skin is pink, warm \T\ dry. 12:00 General: Appears in no apparent distress. comfortable, Behavior is cooperative, zb appropriate for age, anxious, Denies fever, feeling ill, fatigue, chills. Pain: Complains of pain in left lateral anterior chest Pain does not radiate. Pain currently is 3 out of 10 on a pain scale. Quality of pain is described as sharp. Neuro: Level of Consciousness is awake, alert, obeys commands, Oriented to person, place, time, situation. Cardiovascular: Capillary refill < 3 seconds in bilateral fingers Patient's skin is warm and dry. Respiratory: Airway is patent Respiratory effort is even, unlabored, Respiratory pattern is regular, symmetrical. GI: Abdomen is round non-distended, Abd is soft and non tender. : No signs and/or symptoms were reported regarding the genitourinary system. Derm: Skin is intact, is healthy with good turgor, Skin is pink, warm \T\ dry. Musculoskeletal: Circulation, motion, and sensation intact. Capillary refill Range of motion: intact in all extremities. Vital Signs: 09:49 BP 142 / 79; Pulse 81; Resp 18 S; Temp 98.1(O); Pulse Ox 100% on R/A; aa5 10:47 BP 112 / 73; Pulse 68; Resp 17; Pulse Ox 100% ; jl7 11:39 Weight 97.52 kg; jl7 13:00 BP 110 / 62; Pulse 89; Resp 18; Pulse Ox 99% on R/A; zb ED Course: 09:24 Patient arrived in ED. ag5 09:49 Arm band placed on Patient placed in an exam room, on a stretcher. aa5 09:52 Nigel Napier MD is Attending Physician. vivian 10:00 Pooja Villa, HENRIK is Primary Nurse. jl7 10:01 Triage completed. aa5 10:25 XRAY Chest (1 view) In Process Unspecified. EDMS 10:30 Patient has correct armband on for positive identification. Placed in gown. Bed in low jl7 position. Call light in reach. Side rails up X 1. training program developer on. Pulse ox on. NIBP on. Warm blanket given. 10:30 Initial lab(s) drawn, by la, sent to lab. Urine collected: clean catch specimen, clear, jl7 EKG done, by ED staff, reviewed by Nigel Napier MD. Inserted saline lock: 20 gauge in left antecubital area, using aseptic technique. Blood collected. 11:28 Judd Aparicio MD is Hospitalizing Provider. vivian 11:38 D-Dimer Sent. ca1 12:13 CT Chest Wo Con In Process Unspecified. EDMS 12:37 Anna Mraie Dumont, HENRIK is Primary Nurse. zb 14:40 No provider procedures requiring assistance completed. Patient admitted, IV remains in zb place. Administered Medications: 12:30 Drug: Lovenox 1 mg/kg Route: Sub-Q; Site: right lower abdomen; zb 13:00 Follow up: Response: No adverse reaction zb 12:31 Drug: Rocephin 1 grams Route: IV; Rate: per protocol; Site: right hand; zb 12:32 Drug: NS 0.9% 1000 ml Route: IV; Rate: 125 ml/hr; Site: right hand; zb 13:30 Drug: Potassium Effervescent Tablet 25 mEq Route: PO; zb 14:00 Follow up: Response: No adverse reaction zb Outcome: 11:28 Decision to Hospitalize by Provider. vivian 14:40 Admitted to Med/surg accompanied by tech, via wheelchair. zb 14:40 Condition: stable 14:40 Discharge instructions given to patient, Instructed on the need for admit, Demonstrated understanding of instructions. 14:53 Patient left the ED. ángel Signatures: Dispatcher [employer] EDMS Nigel Napier MD MD cha Calderon, Audri, RN RN aa5 Pooja Villa RN RN jl7 Lidia Finch RN RN ca1 Vick, Sincere ag5 Anna Marie Dumont RN RN zb Corrections: (The following items were deleted from the chart) 12:20 11:38 CORONAVIRUS+MR.[email or web address].BRZ drawn and sent. elin JAMA
[2020-07-20] MEDS ORDERED: CEFTRIAXONE/SWI 1gm 1 GM/10 ML SYR ONE (11:58)
[2020-07-20] MEDS ORDERED: ENOXAPARIN 100 MG/ML SYR SQ ONE (11:58)
[2020-07-20] MEDS ORDERED: NA CHLORIDE 0.9% 1,000 ML ONE (11:59)
--- NOTE | 2020-07-20 12:22 | RAD REPORT ---
EXAM DESCRIPTION: Alon Single View07/20/2020 10:25 am CLINICAL HISTORY: Abdominal pain COMPARISON: 2019 FINDINGS: Lungs are mildly hazy bilaterally. The heart is normal size IMPRESSION: Lungs are mildly hazy bilaterally. This could be secondary to overlying soft tissue or mild infiltrates.
--- NOTE | 2020-07-20 12:26 | RAD REPORT ---
EXAM DESCRIPTION: CT - Thorax Wo Con - 07/20/2020 12:11 pm CLINICAL HISTORY: Chest pain COMPARISON: none TECHNIQUE: Computed axial tomography of the chest was obtained. Contrast was not requested. All CT scans are performed using dose optimization technique as appropriate and may include automated exposure control or mA/KV adjustment according to patient size. FINDINGS: The evaluation of mediastinum, jonny and vessels is limited secondary to lack of IV contras t administration. The lungs are clear. No mediastinal or hilar lymphadenopathy is seen. A pleural effusion is not present. No pericardial effusion. Small hiatal hernia IMPRESSION: No acute abnormality displayed
--- NOTE | 2020-07-20 13:12 | P.HP ---
Certification for Inpatient Patient admitted to: Observation With expected LOS: <2 Midnights Practitioner: I am a practitioner with admitting privileges, knowledge of patient current condition, hospital course, and medical plan of care. Services: Services provided to patient in accordance with Admission requirements found in Title 42 Section 412.3 of the Code of Federal Regulations Patient History Date of Service: 07/20/20 Reason for admission: Chest pain History of Present Illness: 45-year-old female, PMH: CAD s/p [place] (2018), hypertension, fluid infection (May) who presents to ED with 1 week of intermittent lower left chest pain. She states as a very sharp pain occurs countless times throughout the day, lasting anywhere from 10 seconds to 1 min. Nothing in particular higher rates this pain, it seems to come on at random. She states it does not feel like her prior [place] pain. She does endorse a history of chronic "bad CPR pain" that she dealt with for some time, and this feels somewhat similar to that. She denies any shortness of breath and no palpitations, no abdominal pain, no nausea/vomiting, no diarrhea. In the ED, EKG without any new ischemic changes, CBC, CMP rather unremarkable, BNP: 351, initial troponin negative. Allergies fentanyl Allergy (Verified 09/15/18 23:25) Anaphylaxis Home Medications: Omeprazole Magnesium [Prilosec Otc] 20 mg PO DAILY 09/15/18 Atorvastatin Calcium [Lipitor] 80 mg PO BEDTIME #30 tab 09/19/18 Clopidogrel Bisulfate [Plavix*] 75 mg PO DAILY #30 tablet 09/19/18 Aspirin [Lloyd Chewable Aspirin] 1 tab PO DAILY 07/20/20 Metoprolol Tartrate [Lopressor*] 50 mg PO BID 07/20/20 Spironolactone 1 tab PO DAILY 07/20/20 Valsartan [Diovan] 1 tab PO DAILY 07/20/20 - Past Medical/Surgical History Diabetic: No -: Hypertension -: CAD s/p stent, [place] -: GERD -: Tobacco abuse -: c section -: left ear sx stapes bone -: tonsillectomy Psychosocial/ Personal History: Patient is single. She has 2 children. 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 - Family History Mother -: Hypertension, Other (see notes) (Grandmother with history of atrial fibrillation) - Social History Alcohol use: No CD- Drugs: No Caffeine use: Yes Review of Systems 10-point ROS is otherwise unremarkable Physical Examination - Physical Exam General: Alert, In no apparent distress, Oriented x3 HEENT: Sclerae nonicteric Respiratory: Clear to auscultation bilaterally, Normal air movement Cardiovascular: No edema, Regular rate/rhythm Gastrointestinal: Soft and benign, No tenderness Musculoskeletal: Tenderness (Left lower chest just lateral to sternum, inferior to L breast) Neurological: Normal speech, Normal affect - Studies Laboratory Data (last 24 hrs) 07/20/20 10:29: PT 12.1, INR 1.03 07/20/20 10:29: Magnesium 2.1 07/20/20 10:29: WBC 10.2, Hgb 13.4, Hct 41.1, Plt Count 317 07/20/20 10:29: Sodium 138, Potassium 3.3 L, BUN 10, Creatinine 0.90, Glucose 97, Total Bilirubin 0.9, AST 16, ALT 23, Alkaline Phosphatase 126 H, Lipase 127 Assessment and Plan - Advance Directives Does patient have a Living Will: No Does patient have a Durable POA for Healthcare: No Physician Review Additional Text: Chest pain CAD s/p Stent, prior [place] HTN recent COVId-19 infection -given significant cardiac history will bring patient in for observation, trend troponins, continue home aspirin and Plavix, Lipitor -cardiology consulted -obtain home medications and restart as appropriate -COVID positive approximately 2 months ago, and reports negative antibodies 1 month ago -does not appear to have any covid symptoms at this time -patient did have chest wall tenderness to palpation reported it was in the same location that she has been having her pain, possible MSK component Code: Full Diet: heart healthy Dispo: Anticipate Dc home tomorrow pending ACS rule out Time Spent Managing Pts Care (In Minutes): 55
[2020-07-20] MEDS ORDERED: POTASSIUM 25 MEQ EFFERV TAB ONE (13:34)
[2020-07-20] MEDS: IBUPROFEN 600 MG TAB PO SCH ×3 (14:35→22:57)
[2020-07-20 15:32] VITALS: BMI 37.2
[2020-07-20] MEDS: METOPROLOL TAR 50 MG TAB PO SCH ×2 (20:00→22:55)
[2020-07-20] MEDS ORDERED: ATORVASTATIN 80 MG TAB PO SCH (21:00)
[2020-07-20 21:18] VITALS: O2SAT 97
[2020-07-21 07:01] LABS: Magnesium 2.2 mg/dL (1.8-2.4)
[2020-07-21] MEDS ORDERED: METOPROLOL TAR 50 MG TAB PO SCH (08:00)
[2020-07-21] MEDS: LIDOCAINE 4% PATCH TOP SCH ×2 (08:58→09:00)
[2020-07-21] MEDS ORDERED: ASPIRIN EC 81 MG TAB PO SCH (09:00)
[2020-07-21] MEDS ORDERED: VALSARTAN 80 MG TAB PO SCH (09:00)
[2020-07-21] MEDS ORDERED: CLOPIDOGREL 75 MG TABLET PO SCH (09:00)
[2020-07-21] MEDS: IBUPROFEN 600 MG TAB PO SCH (09:00)
[2020-07-21] MEDS ORDERED: ENOXAPARIN 40 MG/0.4 ML SQ SCH (09:00)
[2020-07-21] MEDS ORDERED: SPIRONOLACTONE 25 MG TABLET PO SCH (09:00)
[2020-07-21 09:16] VITALS: TEMP 97.3
[2020-07-21 13:31] VITALS: BP 117/57
--- NOTE | 2020-07-21 14:16 | P.DS ---
Admission Date: 07/20/20 Discharge Date: 07/21/20 Disposition: ROUTINE DISCHARGE Discharge Condition: GOOD Reason for Admission: Chest pain Consultations: Cardiology - Dr. Cifuentes Procedures: CXR (07/20): Lungs are mildly hazy bilaterally. This could be secondary to overlying soft tissue or mild infiltrates. CT Chest (07/20): No acute abnormality displayed Problem List: Chest pain CAD s/p Stent, prior [place] HTN recent COVId-19 infection Brief History of Present Illness: 45-year-old female, PMH: CAD s/p [place] (2018), hypertension, fluid infection (May) who presents to ED with 1 week of intermittent lower left chest pain. She states as a very sharp pain occurs countless times throughout the day, lasting anywhere from 10 seconds to 1 min. Nothing in particular higher rates this pain, it seems to come on at random. She states it does not feel like her prior [place] pain. She does endorse a history of chronic "bad CPR pain" that she dealt with for some time, and this feels somewhat similar to that. She denies any shortness of breath and no palpitations, no abdominal pain, no nausea/vomiting, no diarrhea. In the ED, EKG without any new ischemic changes, CBC, CMP rather unremarkable, BNP: 351, initial troponin negative. Hospital Course: She was observed on telemetry and troponins were trended (neg x3). ACS was ruled out. She continued with mild chest pain and notable tenderness to palpation at the area of pain. The pain seemed musculoskeletal in nature, she was discharged home and advised to take ibuprofen or aleve BID x 5 days. During her hospitalization, she was noted to have sinus bradycardia to high 40s/50s at times. She was advised to reduce her metoprolol dosage to 25mg BID from 50mg BID . She is to f/u with Cardiology for an outpatient stress test soon. Vital Signs/Physical Exam: Temp Pulse Resp BP Pulse Ox 97.3 F 70 20 117/57 L 97 07/21/20 12:00 07/21/20 12:00 07/21/20 12:00 07/21/20 12:00 07/21/20 12:00 General: Alert, In no apparent distress HEENT: Sclerae nonicteric Neck: Supple Respiratory: Clear to auscultation bilaterally, Normal air movement Cardiovascular: No edema, Regular rate/rhythm, Normal S1 S2 Gastrointestinal: Soft and benign, Non-distended, No tenderness Musculoskeletal: Tenderness (L chest, just inferior to L breast and lateral to s ternum) Integumentary: No rashes Neurological: Normal speech, Normal affect Laboratory Data at Discharge: WBC 10.2 K/uL (4.3-10.9) 07/20/20 10:29 Hgb 13.4 g/dL (12.0-15.0) 07/20/20 10:29 Hct 41.1 % (36.0-45.0) 07/20/20 10:29 Plt Count 317 K/uL (152-406) 07/20/20 10:29 PT 12.1 SECONDS (9.5-12.5) 07/20/20 10:29 INR 1.03 07/20/20 10:29 Sodium 140 mmol/L (136-145) 07/21/20 06:16 Potassium 4.0 mmol/L (3.5-5.1) 07/21/20 06:16 BUN 10 mg/dL (7-18) 07/21/20 06:16 Creatinine 0.88 mg/dL (0.55-1.3) 07/21/20 06:16 Glucose 83 mg/dL (74-106) 07/21/20 06:16 Magnesium 2.2 mg/dL (1.8-2.4) 07/21/20 06:16 Total Bilirubin 0.9 mg/dL (0.2-1.0) 07/20/20 10:29 AST 16 U/L (15-37) 07/20/20 10:29 ALT 23 U/L (12-78) 07/20/20 10:29 Alkaline Phosphatase 126 U/L (45-117) H 07/20/20 10:29 Troponin I < 0.02 ng/mL (0.0-0.045) 07/20/20 22:47 Lipase 127 U/L (73-393) 07/20/20 10:29 Home Medications: Omeprazole Magnesium [Prilosec Otc] 20 mg PO DAILY 09/15/18 Atorvastatin Calcium [Lipitor] 80 mg PO BEDTIME #30 tab 09/19/18 Clopidogrel Bisulfate [Plavix*] 75 mg PO DAILY #30 tablet 09/19/18 Aspirin [Lloyd Chewable Aspirin] 1 tab PO DAILY 07/20/20 Metoprolol Tartrate [Lopressor*] 50 mg PO BID 07/20/20 Spironolactone 1 tab PO DAILY 07/20/20 Valsartan [Diovan] 1 tab PO DAILY 07/20/20 Patient Discharge Instructions: follow up with cardiology for outpatient stress test in the next few weeks. continue home medications as prescribed except for metoprolol (take 25mg BID as discussed). Diet: AHA Activity: Ad erica Followup: Kavon Cifuentes MD [ACTIVE - CAN ADMIT] - Unknown,U [Primary Care Provider] - Time spent managing pt's care (in minutes): 40
[2020-07-22] MEDS ORDERED: PANTOPRAZOLE 40MG TABLET PO SCH (06:30)
== END 2020-07-21 14:45 | disposition home or self-care (01) | DRG 313 ==
LOC: ER 09:23 → ERHOLD 13:06 → OBSVTOIN 13:06 → 2ND 14:28
PROVIDERS: ADMIT Hospitalist; ATTEND Hospitalist
DX: R07.89 Other chest pain (principal); E78.5 Hyperlipidemia, unspecified; I25.10 Atherosclerotic heart disease of native coronary artery without angina pectoris; I10 Essential (primary) hypertension; K21.9 Gastro-esophageal reflux disease without esophagitis; E87.6 Hypokalemia; I25.2 Old myocardial infarction; R00.1 Bradycardia, unspecified; Z88.5 Allergy status to narcotic agent; Z79.02 Long term (current) use of antithrombotics/antiplatelets; Z79.82 Long term (current) use of aspirin; Z79.899 Other long term (current) drug therapy; Z86.19 Personal history of other infectious and parasitic diseases; Z95.5 Presence of coronary angioplasty implant and graft; Z20.828 Contact with and (suspected) exposure to other viral communicable diseases
CPT/HCPCS: 36415; 71045; 71250; 80048; 80076; 81003; 83690; 83735; 83880; 84484; 85025; 85379; 85610; 87040; 87086; 87088; 93005; 94760; 96372; 96374; 99285; J0696; J1650; J7030; U0003

== ENCOUNTER → 2022-09-16 | Day surgery (SDC) | payer BC | LOC: FNA 09:56 | PROVIDERS: ATTEND Registered Nurse | DX: E05.90 Thyrotoxicosis, unspecified without thyrotoxic crisis or storm (principal); E04.1 Nontoxic single thyroid nodule; Z53.9 Procedure and treatment not carried out, unspecified reason ==